=== PATIENT | male | born 1940 | race Caucasian/White ===

== ENCOUNTER 2016-02-23 10:40 | Inpatient (IN) | payer MEDICARE ==
[2016-02-23] MEDS ORDERED: METHYLPREDNISOLONE 125 MG/2 ML VIAL IV ONE ×2 (10:42→12:25)
[2016-02-23] MEDS ORDERED: Albuterol/Ipratropium Neb 3 ML NEB NEB ONE (10:42)
--- NOTE | 2016-02-23 10:53 | EDPRACDOC ---
- General Information Stated Complaint: RESP. 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 Mode Of Arrival: Ambulance Home Medications: Home Medications Albuterol/Ipratropium Neb [Duoneb] 3 ml NEB Q6H PRN 02/23/16 Amlodipine [Norvasc] 10 mg PO DAILY 02/23/16 Benazepril HCl [Lotensin] 20 mg PO DAILY 02/23/16 Fluticasone/Vilanterol [Breo Ellipta 200-25 Mcg INH] 1 each INH DAILY 02/23/16 Nebulizer [Erapid Nebulizer] 1 each MC .UNKNOWN 02/23/16 Tiotropium [place] [Spiriva] 1 puff INH DAILY 02/23/16 Allergies/Adverse Reactions: Allergies Allergy/AdvReac Type Severity Reaction Status Date / Time No Known Drug Allergies Allergy Unknown Verified 02/23/16 10:48 - History of Present Illness Onset: FEW DAYS HPI: PT SAID THAT HE HAS HAD SOB AND A COUGH FOR THE PAST FEW DAYS. SX TODAY ARE WORSE. PT WEARS HOME O2 2L NORMALLY AND ACCORDING TO EMS, PT'S O2 SAT WAS IN THE MID 80S. PT'S OXYGEN INCREASED AND HE WAS GIVEN A DUONEB EN ROUTE. Shortness of Breath: Moderate Relevant History: Reports: COPD Cough: Reports: Yellow Rhinorrhea: Reports: None Ear Symptoms: Reports: None SOB Worsens with: Reports: Exertion SOB Improves with: Reports: Nothing ED Past Medical History - Patient Medical History Respiratory History: Reports: COPD - Social Medical History Lives In: Home EDM Review of Systems - Review of Systems ROS Negative Except as Marked: Yes All systems reviewed and were negative except as marked Respiratory: Cough, Shortness of Breath, Wheezing - Physical Exam Constitutional: Distress Oriented to: Time, Person, Place Last recorded Vital Signs: Oxygen Pulse Oxygen Saturation O2 Device Oxygen Flow Rate Fraction of Inspired Oxygen ( FIO2) - HEENT Head: Normal ( normocephalic) Eye Exam: Normal (PERRL, EOMI, Sclera white) Oropharynx: Membranes Dry ENT EAC: Normal TMJ: Normal Nose: No Symptoms Reported (septum midline) Neck: Normal (FROM, trachea at midline) - Respiratory/Cardiovascular Respiratory: Accessory Muscle Use, Rhonchi, Tachypnea, Wheezes Cardiovascular: Tachycardia - GI Auscultation: Normal (NABS) Palpation: Normal (Soft,No rebound or guarding, non distended) Tenderness: Non tender Lewis's Sign: Negative - Musculoskeletal Back: Normal (Non-Tender) Extremities: Normal (Normal tone, Pulses 2+ No cyanosis or edema, FROM) - Integumentary Skin: Normal, Warm, Dry Lymphatics: Normal (no adenopathy) - Neurologic Memory Impaired: Normal Motor Function: Normal (Normal tone, Pulses 2+ No cyanosis or edema, FROM) Cranial Nerve: Normal (CN II-X11 intact sensation, strength 5/5) Cerebellar: Normal Mood Description: Normal Thought: Coherent Perception: Normal ED SOB MDM - Re-evaluation Re-evaluation 1 Re-evaluation Time: 11:48 (IMPROVED, BUT STILL SOB.) - Results Result Diagrams: 02/23/16 10:45 02/23/16 10:45 - EKG EKG #1 EKG Time: 11:02 -: Yes EKG interpreted by me Rate: bpm: 119 [place]: Normal Rhythm: ST Block: None Hypertrophy: None ST: Normal Comments: no old - Diagnostic Imaging Chest Image interpreted by: Radiologist Diagnostic Imaging Comments: Vascular congestion with underlying interstitial chronic changes. Patchy airspace disease at the right base, suspicious for pneumonia. - Departure Yes I personally saw and evaluated the patient. Disposition: Admit IP To This Hospital Condition: Fair Final Diagnosis: Acute exacerbation of chronic obstructive airways disease, RLL pneumonia, Acute respiratory failure with hypoxia Education/Counseling Given To: Patient Education/Counseling Given Regarding: Diagnosis, Treatment Decision to Admit Time: 11:49 Decision to admit date: 02/23/16 Decision to admit: from ED - Physician Consulted Hospitalist Provider Called: Jourdan Holman
[2016-02-23 10:58] LABS: ALLEN'S TEST PASS; BEb 2.4 (+/- 2); TCO2 28.5 MMOL/L (23-27)
[2016-02-23 10:59] LABS: ABG Draw Site Right Radial
[2016-02-23 11:09] LABS: AUTOMATED BASOPHIL 0.2 % (0-2); AUTOMATED EOSINOPHIL 0.1 % (0-5); AUTOMATED LYMPH 5.2 % (17-44); AUTOMATED MONOCYTE 8.7 % (3-10); AUTOMATED NEUTROPHIL 85.8 % (45-76); MPV 7.6 fL (7.4-10.4)
--- NOTE | 2016-02-23 11:15 | DIRPT ---
CLINICAL DATA: Initial encounter for shortness of breath for 3 days with worsening this morning. EXAM: PORTABLE CHEST 1 VIEW COMPARISON: CT chest 12/17/2015. FINDINGS: 1055 hours. Low volume film with lordotic positioning. Cardiopericardial silhouette is at upper limits of normal for size. There is pulmonary vascular congestion without overt pulmonary edema. Underlying probable chronic interstitial lung disease. Asymmetric elevation of right hemidiaphragm noted. Patchy airspace disease noted at the right lung base. IMPRESSION: Vascular congestion with underlying interstitial chronic changes. Patchy airspace disease at the right base, suspicious for pneumonia. Electronically Signed By: Aaron Fuentes M.D. On: 02/23/2016 11:12
[2016-02-23] MEDS ORDERED: Levofloxacin 750 mg/150 ml D5W 750 MG/150 ML RTU IV ONE (11:16)
[2016-02-23 11:22] LABS: PARTIAL THROMB. TIME 24.1 SEC (22-35); PT-INR 1.1
[2016-02-23 11:24] LABS: BLOOD UREA NITROGEN 20 MG/DL (9-20); CALCIUM 9.4 MG/DL (8.4-10.2); CALCULATED OSMOLALITY 285 MOs/Kg (270-290); CHLORIDE 104 mEq/L (98-107); GLUCOSE 197 MG/DL (70-99); SODIUM LEVEL 144 mEq/L (137-146); TOTAL PROTEIN 7.8 G/DL (6.3-8.2)
[2016-02-23] MEDS ORDERED: DOCUSATE-SENNA CONCENTRATE TAB PO PRN (12:15)
[2016-02-23] MEDS ORDERED: SIMETHICONE 80 MG TAB PO PRN (12:15)
[2016-02-23] MEDS ORDERED: ACETAMINOPHEN 650 MG SUPP PR PRN (12:15)
[2016-02-23] MEDS ORDERED: GLUCOSE (ORAL GEL) 15 GM TUBE PO PRN (12:15)
[2016-02-23] MEDS ORDERED: SODIUM CHLORIDE 0.9% 3 ML FLUSH FLUSH PRN (12:15)
[2016-02-23] MEDS ORDERED: DEXTROSE 25 GM/50 ML PFS IV PRN (12:15)
[2016-02-23] MEDS ORDERED: METOCLOPRAMIDE 10 MG/2 ML VIAL IV PRN (12:15)
[2016-02-23] MEDS ORDERED: GLUCAGON 1 MG VIAL SQ PRN (12:15)
[2016-02-23] MEDS ORDERED: ONDANSETRON HCL 4 MG/2 ML VIAL IV PRN (12:15)
[2016-02-23] MEDS ORDERED: Albuterol/Ipratropium Neb 3 ML NEB NEB PRN (12:15)
[2016-02-23] MEDS ORDERED: NS 1,000 ML IV ONE (12:15)
[2016-02-23] MEDS: NS 1,000 ML IV SCH ×3 (15:24→16:25)
[2016-02-23] MEDS: CEFTRIAXONE 1 GM in D5W 100 ML IV SCH (15:31)
[2016-02-23] MEDS: Albuterol/Ipratropium Neb 3 ML NEB NEB SCH ×2 (15:41→20:21)
[2016-02-23] MEDS ORDERED: Vaccine Screening Complete SCH (16:00)
[2016-02-23] MEDS: AZITHROMYCIN 500 MG in D5W 250 ML IV SCH (16:23)
[2016-02-23] MEDS: SODIUM CHLORIDE 0.9% 3 ML FLUSH FLUSH SCH (16:24)
[2016-02-23] MEDS: METHYLPREDNISOLONE 125 MG/2 ML VIAL IV SCH ×2 (16:26→22:57)
[2016-02-23] MEDS: REGULAR INSULIN 100 UNITS/ML - 3 ML VIAL SQ SCH ×2 (16:42→20:41)
[2016-02-23] MEDS: ENOXAPARIN 60 MG/0.6 ML PFS SQ SCH (17:30)
--- NOTE | 2016-02-23 17:59 | HISTPHYS ---
- Chief Complaint COUGH & CONGESTION, SHORT OF BREATH - History of Present Illness Mr. Jacques Babcock is a 75 year old man who presented to the ED complaining of acute onset of worsening shortness of breath, chest congestion, and coughing that began about 3-4 days ago. He reports fever and chills at home, denies nausea or vomiting. He has a history of COPD and is usually on 2L of oxygen at home, but turned it up to 4L today without relief. He was still hypoxic on arrival to the ED with an O2 sat of 89% on 4L. His chest x-ray reveals a patchy infiltrate in the right base, consistent with pneumonia. He is being admitted for for evaluation and treatment. - Medical History Cardiac History: Reports: Hypertension Respiratory History: Reports: COPD, Cough GI/ History: Reports: Gastroesophageal Reflux Musculoskeletal History: Reports: Arthritis Systemic History: Reports: No Significant History. Denies: Diabetes Neurological History: Reports: No Significant History Psychological History: Reports: No Significant History. Denies: Depression - Surgical History Reports: No Significant History, Other (remote hx fractured forearm) - Medictions/Allergies Allergies No Known Drug Allergies Allergy (Verified 02/23/16 10:48) Unknown Current Medication List: Reviewed Home Medications Albuterol/Ipratropium Neb [Duoneb] 3 ml NEB Q6H PRN 02/23/16 Amlodipine [Norvasc] 10 mg PO DAILY 02/23/16 Benazepril HCl [Lotensin] 20 mg PO DAILY 02/23/16 Fluticasone/Vilanterol [Breo Ellipta 200-25 Mcg INH] 1 each INH DAILY 02/23/16 Nebulizer [Erapid Nebulizer] 1 each MC .UNKNOWN 02/23/16 Tiotropium [place] [Spiriva] 1 puff INH DAILY 02/23/16 - Family History Reports: Hypertension. Denies: Diabetes, Cancer, Stroke, Cardiac Disorders - Social History Travel Outside of [place] in the Last 3 Months?: No Lives: with Significant Other Smoking Status: Former smoker (quit >20 yr ago) Social History: Denies: Alcohol Use - Review of Systems Constitutional: Chills, Fever, Loss of Appetite, Weakness Eyes: No Symptoms Reported Ears: No Symptoms Reported Nose: No Symptoms Reported Mouth: Dry Mouth Throat/Neck: No Symptoms Reported Respiratory: Brassy Cough, Cough, Shortness of Breath, Wheezing, Bronchitis Cardiovascular: Chest Pain Gastrointestinal: Heartburn Genitourinary: Frequency, Nocturia Neurological: Dizziness Musculoskeletal:: Osteoarthritis, Joint Pain Integumentary: No Symptoms Reported Allergic/Immunologic: No Symptoms Reported Hematologic: No Symptoms Reported Endocrine: Polyuria Psychiatric: No Symptoms Reported - Physical Exam Vital Signs: Initial Vitals Temperature 99 F 02/23/16 10:40 Pulse Rate 118 02/23/16 10:40 Respiratory Rate 30 H 02/23/16 10:40 Blood Pressure 142/67 02/23/16 10:40 Pulse Oxygen Saturation 89 L 02/23/16 10:40 Constitutional: Alert, Distress (obese white male, moderate respiratory distress ) Oriented to: Time, Person, Place - HEENT Head: Normal Eye: Normal (PERRL: EOMI) Oropharynx: Membranes Dry. negative: Exudate, Red Tympanic Membrane: Normal ENT EAC: Normal Nose: negative: Bleeding, Congestion, Discharge Respiratory: Diminished, Rales, Retractions, Rhonchi, Tachypnea, Wheezes Cardiovascular: Tachycardia (regular rhythm and rate, no murmur) - GI Auscultation: Normal Palpation: Normal (soft, obes, nondistended) Tenderness: Non tender Lewis's Sign: Negative Rectal Exam: Deferred - Musculoskeletal Back: Normal Extremities: Normal, Pedal Pulse (normal), Radial Pulse (normal). negative: Clubbing, Cyanosis, Edema Spine: non-tender, normal alignment, normal inspection - Integumentary Skin: Warm, Dry Lymphatics: Normal - Neurologic Memory Impaired: Normal Motor Function: Normal Cranial Nerve: Normal Cerebellar: Normal Mood Description: Normal, Appropriate, Calm Thought: Coherent Perception: Normal - Foot Exam Foot Prick Test: Normal Babinski Reflex Response: Absent Bilateral Achilles Tendon Reflex Response: Normal Skin/Nail Foot Exam: Dry, Fissure/Cracks Vascular Foot exam: Hair Loss. negative: Edema Foot Exam: Normal inspection, Full ROM - Focused CV Perfusion Exam Vital Signs: Last Vital Signs Temp 98.2 F 02/23/16 16:31 Pulse 95 02/23/16 16:57 Resp 35 H 02/23/16 16:31 BP 137/67 02/23/16 16:31 Pulse Ox 92 02/23/16 16:31 - Lab Results Laboratory Tests 02/23/16 02/23/16 02/23/16 10:45 10:45 10:45 WBC 14.5 H Hgb 13.1 L Hct 39.7 L Plt Count 335 Neut % (Auto) 85.8 H Lymph % (Auto) 5.2 L [place] % (Auto) 8.7 PT 11.4 H INR 1.1 APTT 24.1 Puncture Site pH pCO2 pO2 HCO3 Total CO2 Base Excess FiO2 % Sodium 144 Potassium 4.3 Chloride 104 Carbon Dioxide 27 Anion Gap 17 H BUN 20 Creatinine 1.00 Estimated GFR (MDRD) > 60 Glucose 197 H POC Capillary Glucose Calculated Osmolality 285 Lactic Acid Calcium 9.4 Total Bilirubin 0.7 AST 29 ALT 48 Troponin I < 0.01 Gfb-B-Bxblvcungwx Pept Albumin 4.0 02/23/16 02/23/16 02/23/16 10:45 10:45 10:52 WBC Hgb Hct Plt Count Neut % (Auto) Lymph % (Auto) [place] % (Auto) PT INR APTT Puncture Site Right radial pH 7.420 pCO2 42.0 pO2 51.0 L HCO3 27.2 H Total CO2 28.5 H Base Excess 2.4 H FiO2 % 1 lpm nc Sodium Potassium Chloride Carbon Dioxide Anion Gap BUN Creatinine Estimated GFR (MDRD) Glucose POC Capillary Glucose Calculated Osmolality Lactic Acid 3.1 H Calcium Total Bilirubin AST ALT Troponin I Kvb-G-Zejmleywkst Pept 243 Albumin 02/23/16 02/23/16 02/23/16 13:52 16:00 16:07 WBC Hgb Hct Plt Count Neut % (Auto) Lymph % (Auto) [place] % (Auto) PT INR APTT Puncture Site pH pCO2 pO2 HCO3 Total CO2 Base Excess FiO2 % Sodium Potassium Chloride Carbon Dioxide Anion Gap BUN Creatinine Estimated GFR (MDRD) Glucose POC Capillary Glucose 185 H Calculated Osmolality Lactic Acid Calcium Total Bilirubin AST ALT Troponin I < 0.01 < 0.01 Pmy-C-Ksldckkdpuh Pept Albumin - Diagnostic Findings CXR: IMPRESSION: Vascular congestion with underlying interstitial chronic changes. Patchy airspace disease at the right base, suspicious for pneumonia. Electronically Signed By: Aaron Fuentes M.D. On: 02/23/2016 11:12 - Assessment (1) Acute respiratory failure with hypoxia J96.01 - ACUTE RESPIRATORY FAILURE WITH HYPOXIA Acute Present on Admission: Yes Admit. Provide supplemental oxygen. Maintain O2 sat> 90% but less than 94% due to his COPD. Monitor CXR and O2 sats, ABG intermittently. (2) RLL pneumonia J18.1 - LOBAR PNEUMONIA, UNSPECIFIED ORGANISM Acute Present on Admission: Yes Qualifiers: Pneumonia type: due to unspecified organism Qualified Code(s): J18.1 - Lobar pneumonia, unspecified organism Probably community acquired: will start IV Rocephin and Zithromax, give fluids. Provide supplemental oxygen and pulmonary toilet, monitor O2 sats. (3) Acute exacerbation of chronic obstructive airways disease J44.1 - CHRONIC OBSTRUCTIVE PULMONARY DISEASE W (ACUTE) EXACERBATION Acute Present on Admission: Yes Duo-Nebs q 6hr, + q 2 Hr PRN, add IV steroids, IV antibiotics, and incentive spirometry. Maintain O2 sat> 90% but less than 94% due to his COPD. Monitor CXR and O2 sats, ABG intermittently. (4) Hyperglycemia due to type 2 diabetes mellitus E11.65 - TYPE 2 DIABETES MELLITUS WITH HYPERGLYCEMIA Acute Present on Admission: Yes Qualifiers: Diabetes mellitus continuous churn buttermaker insulin use: without assisted use Qualified Code(s): E11.65 - Type 2 diabetes mellitus with hyperglycemia Newly diagnosed, patient was not aware that he had diabetes. Will check FSBS and start SSI, moderate carb diet. Will probably need oral agent. Check Hg A1c also. (5) Hypertension I10 - ESSENTIAL (PRIMARY) HYPERTENSION Acute Present on Admission: Yes Qualifiers: Hypertension type: essential hypertension Qualified Code(s): I10 - Essential (primary) hypertension Continue benazepril and amlodipine. Case Care Discussed with: Patient, Nursing Staff Total Time: 60 min
[2016-02-23] MEDS: BENZONATATE 100 MG PERLES PO PRN (20:40)
[2016-02-23] MEDS: TEMAZEPAM 15 MG CAP PO PRN (20:40)
[2016-02-24] MEDS: NS 1,000 ML IV SCH ×4 (01:33→21:19)
[2016-02-24] MEDS: Albuterol/Ipratropium Neb 3 ML NEB NEB SCH ×4 (01:54→19:26)
[2016-02-24 04:23] LABS: ABG Draw Site Right Radial; ALLEN'S TEST PASS; BEb 2.2 (+/- 2); TCO2 29.8 MMOL/L (23-27)
[2016-02-24 04:24] LABS: ABG Draw Tech BKL
[2016-02-24] MEDS: SODIUM CHLORIDE 0.9% 3 ML FLUSH FLUSH SCH ×2 (04:43→16:01)
[2016-02-24] MEDS: METHYLPREDNISOLONE 125 MG/2 ML VIAL IV SCH ×4 (04:43→21:22)
[2016-02-24 05:18] LABS: MPV 7.8 fL (7.4-10.4)
[2016-02-24 05:26] LABS: BLOOD UREA NITROGEN 23 MG/DL (9-20); CALCIUM 8.6 MG/DL (8.4-10.2); CALCULATED OSMOLALITY 283 MOs/Kg (270-290); CHLORIDE 105 mEq/L (98-107); GLUCOSE 170 MG/DL (70-99); SODIUM LEVEL 143 mEq/L (137-146)
[2016-02-24] MEDS: REGULAR INSULIN 100 UNITS/ML - 3 ML VIAL SQ SCH ×4 (05:32→21:19)
[2016-02-24] MEDS: BENZONATATE 100 MG PERLES PO PRN ×2 (05:32→21:22)
[2016-02-24] MEDS: BENAZEPRIL 20 MG TAB PO SCH (07:21)
[2016-02-24] MEDS: AMLODIPINE 10 MG TAB PO SCH (07:21)
[2016-02-24 08:11] LABS: SEG NEUTROPHIL 58 % (45-76)
[2016-02-24] MEDS: BUDESONIDE 0.5 MG NEB NEB SCH ×2 (08:43→19:27)
[2016-02-24] MEDS ORDERED: [UNRECOGNIZED DRUG - OTHER] INH SCH (09:00)
--- NOTE | 2016-02-24 11:48 | GENMEDPROG ---
Chief Complaint: PNEUMONIA, DM-2, COPD, HTN, RESP INSUFF. Currently: Reports: Cough, Wheezing, MICHAELS, SOB, Tobacco Use/Hx. Denies: Ambulating DVT Prophylaxis: Yes - Physical Examination Vital Signs and I&O: Last Vital Signs Temp 98.2 F 02/24/16 08:18 Pulse 80 02/24/16 11:16 Resp 20 02/24/16 08:18 BP 138/88 02/24/16 08:18 Pulse Ox 94 02/24/16 08:43 Oxygen Pulse Oxygen Saturation 94 O2 Device Nasal Cannula Oxygen Flow Rate 4 Fraction of Inspired Oxygen ( FIO2) Intake & Output 02/21/16 02/22/16 02/23/16 02/24/16 23:59 23:59 23:59 23:59 Intake Total 4075 2472 Output Total 1200 900 Balance 2875 1572 Patient's weight 115.757 kg 113.58 kg General: Alert, Oriented x3, Cooperative, Moderate distress, Obese, Weakness HEENT: PERRLA, EOMI, Anicteric Sclera, Mucous membr. moist/pink Neck: Full range of motion, Normal Trachea alignment, Normal inspection, No Masses palpable, No Thyromegaly palpable Lymphatics: Normal Respiratory: Diminished, Rales, Retractions, Rhonchi, Tachypnea, Wheezes Cardiovascular: Regular rate and rhythm, Normal S1, Normal S2, Good Pedal Pulses , Chest Non Tender. negative: LE Edema GI: Normal bowel sounds, Soft, Non tender, Obese Extremities/Musculoskeletal: Normal pulses, DJD, FROM. negative: Edema Skin: Warm,Dry and Intact, No breakdown, No significant lesion Neurological: Normal speech, Normal tone, Cranial nerves 3-12 NL Psych/Mental Status: Normal Affect, Cooperative Lab/DI/Studies Reviewed: Laboratory Tests 02/24/16 02/24/16 02/24/16 04:20 05:00 05:00 WBC 10.7 Hgb 11.5 L D Hct 34.4 L RDW 15.1 H Plt Count 297 Seg Neuts % (Manual) 58 Band Neutrophils % 26 H Lymphocytes % (Manual) 13 L pH 7.370 pCO2 49.0 H pO2 77.0 L HCO3 28.3 H Total CO2 29.8 H Base Excess 2.2 H FiO2 % 4 lpm Sodium 143 Potassium 4.4 Chloride 105 Carbon Dioxide 26 Anion Gap 16 BUN 23 H Creatinine 0.80 Estimated GFR (MDRD) > 60 Glucose 170 H Lactic Acid Calcium 8.6 Magnesium 2.10 02/24/16 05:00 WBC Hgb Hct RDW Plt Count Seg Neuts % (Manual) Band Neutrophils % Lymphocytes % (Manual) pH pCO2 pO2 HCO3 Total CO2 Base Excess FiO2 % Sodium Potassium Chloride Carbon Dioxide Anion Gap BUN Creatinine Estimated GFR (MDRD) Glucose Lactic Acid 0.8 Calcium Magnesium - Assessment (1) Acute respiratory failure with hypoxia Acute J96.01 - ACUTE RESPIRATORY FAILURE WITH HYPOXIA Comment/Plan: Continue supplemental oxygen. Maintain O2 sat> 90% but less than 94% due to his COPD. Monitor CXR and O2 sats, ABG intermittently. (2) RLL pneumonia Acute J18.1 - LOBAR PNEUMONIA, UNSPECIFIED ORGANISM Qualifiers: Pneumonia type: due to unspecified organism Qualified Code(s): J18.1 - Lobar pneumonia, unspecified organism Comment/Plan: Probably community acquired: will continue IV Rocephin and Zithromax, give fluids. Provide supplemental oxygen and pulmonary toilet, monitor O2 sats. (3) Acute exacerbation of chronic obstructive airways disease Acute J44.1 - CHRONIC OBSTRUCTIVE PULMONARY DISEASE W (ACUTE) EXACERBATION Comment/Plan: Duo-Nebs q 6hr, + q 2 Hr PRN, IV steroids, IV antibiotics, and incentive spirometry. Maintain O2 sat> 90% but less than 94% due to his COPD. Monitor CXR and O2 sats, ABG intermittently. 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 Will check FSBS and start SSI, moderate carb diet. Will probably need oral agent. Hg A1c=6.5, consistent w/ DM-2. Start metformin. (5) Hypertension Acute I10 - ESSENTIAL (PRIMARY) HYPERTENSION Qualifiers: Hypertension type: essential hypertension Qualified Code(s): I10 - Essential (primary) hypertension Comment/Plan: Continue benazepril and amlodipine.
[2016-02-24] MEDS: CEFTRIAXONE 1 GM in D5W 100 ML IV SCH (13:21)
[2016-02-24] MEDS: ENOXAPARIN 60 MG/0.6 ML PFS SQ SCH (16:00)
[2016-02-24] MEDS: AZITHROMYCIN 500 MG in D5W 250 ML IV SCH (16:00)
[2016-02-24] MEDS: TEMAZEPAM 15 MG CAP PO PRN (21:22)
[2016-02-25] MEDS: Albuterol/Ipratropium Neb 3 ML NEB NEB SCH ×4 (01:13→19:28)
[2016-02-25] MEDS: METHYLPREDNISOLONE 125 MG/2 ML VIAL IV SCH ×4 (04:44→22:04)
[2016-02-25] MEDS: SODIUM CHLORIDE 0.9% 3 ML FLUSH FLUSH SCH ×2 (04:44→18:02)
[2016-02-25] MEDS: BENZONATATE 100 MG PERLES PO PRN (04:53)
[2016-02-25] MEDS: NS 1,000 ML IV SCH ×4 (05:55→20:25)
[2016-02-25] MEDS: MetFORMIN, EXT REL 500 MG TAB PO SCH (06:31)
[2016-02-25] MEDS: REGULAR INSULIN 100 UNITS/ML - 3 ML VIAL SQ SCH ×4 (06:32→22:02)
[2016-02-25] MEDS: BUDESONIDE 0.5 MG NEB NEB SCH ×2 (07:49→19:34)
--- NOTE | 2016-02-25 08:12 | DIRPT ---
CLINICAL DATA: 75-year-old male with history of pneumonia. Cough. EXAM: PORTABLE CHEST 1 VIEW COMPARISON: Chest x-ray 02/23/2016. FINDINGS: Diffuse peribronchial cuffing. Coarse interstitial markings throughout the lungs bilaterally with some patchy airspace disease throughout the right mid to lower lung, and in the medial left lung base, concerning for bronchitis with multilobar bronchopneumonia. No pleural effusions. There is some cephalization of the pulmonary vasculature. Heart size appears upper limits of normal. Upper mediastinal contours are within normal limits. Atherosclerosis in the thoracic aorta. IMPRESSION: 1. The appearance the chest is again most suggestive of bronchitis and developing multilobar bronchopneumonia, as above. 2. Atherosclerosis. Electronically Signed By: Min Burt M.D. On: 02/25/2016 08:09
[2016-02-25] MEDS: AMLODIPINE 10 MG TAB PO SCH (08:20)
[2016-02-25] MEDS: BENAZEPRIL 20 MG TAB PO SCH (08:20)
[2016-02-25] MEDS: ACETAMINOPHEN 325 MG/TAB TABLET PO PRN ×2 (08:23→22:07)
[2016-02-25] MEDS: CEFTRIAXONE 1 GM in D5W 100 ML IV SCH (13:17)
[2016-02-25] MEDS: AZITHROMYCIN 500 MG in D5W 250 ML IV SCH (15:07)
--- NOTE | 2016-02-25 15:29 | GENMEDPROG ---
Chief Complaint: ACUTE RESP FAILURE, COPD EXAC, PNEUMONIA, DM-2 Currently: Reports: Cough, Wheezing, MICHAELS, SOB, Tobacco Use/Hx. Denies: Ambulating DVT Prophylaxis: Yes - Physical Examination Vital Signs and I&O: Last Vital Signs Temp 97.9 F 02/25/16 12:29 Pulse 84 02/25/16 14:00 Resp 18 02/25/16 12:29 BP 131/62 02/25/16 12:29 Pulse Ox 94 02/25/16 12:29 Oxygen Pulse Oxygen Saturation 94 O2 Device Nasal Cannula Oxygen Flow Rate 4 Fraction of Inspired Oxygen ( FIO2) Intake & Output 02/22/16 02/23/16 02/24/16 02/25/16 23:59 23:59 23:59 23:59 Intake Total 4075 4942 2207 Output Total 1200 2400 525 Balance 1935 2704 9782 Patient's weight 115.757 kg 113.58 kg 115.847 kg General: Alert, Oriented x3, Cooperative, Moderate distress, Obese, Weakness HEENT: PERRLA, EOMI, Anicteric Sclera, Mucous membr. moist/pink Neck: Full range of motion, Normal Trachea alignment, Normal inspection, No Masses palpable, No Thyromegaly palpable Lymphatics: Normal Respiratory: Diminished, Rales, Retractions, Rhonchi, Tachypnea, Wheezes Cardiovascular: Regular rate and rhythm, Normal S1, Normal S2, Good Pedal Pulses , Chest Non Tender. negative: LE Edema GI: Normal bowel sounds, Soft, Non tender, Obese Extremities/Musculoskeletal: Normal pulses, DJD, FROM. negative: Edema Skin: Warm,Dry and Intact, No breakdown, No significant lesion Neurological: Normal speech, Normal tone, Cranial nerves 3-12 NL Psych/Mental Status: Normal Affect, Cooperative Lab/DI/Studies Reviewed: SPUTUM C&S + GROWTH SUGGESTIVE OF HAEMOPHILUS INFLUENZA - Assessment (1) Acute respiratory failure with hypoxia Acute J96.01 - ACUTE RESPIRATORY FAILURE WITH HYPOXIA Comment/Plan: Continue supplemental oxygen. Maintain O2 sat> 90% but less than 94% due to his COPD. Monitor CXR and O2 sats, ABG intermittently. (2) RLL pneumonia Acute J18.1 - LOBAR PNEUMONIA, UNSPECIFIED ORGANISM Qualifiers: Pneumonia type: due to Haemophilus influenzae Qualified Code(s): J14 - Pneumonia due to Hemophilus influenzae Comment/Plan: Probably community acquired: will continue IV Rocephin and Zithromax, give fluids. Provide supplemental oxygen and pulmonary toilet, monitor O2 sats. (3) Acute exacerbation of chronic obstructive airways disease Acute J44.1 - CHRONIC OBSTRUCTIVE PULMONARY DISEASE W (ACUTE) EXACERBATION Comment/Plan: Duo-Nebs q 6hr, + q 2 Hr PRN, IV steroids, IV antibiotics, and incentive spirometry. Maintain O2 sat> 90% but less than 94% due to his COPD. Monitor CXR and O2 sats, ABG intermittently. (4) Hyperglycemia due to type 2 diabetes mellitus Acute E11.65 - TYPE 2 DIABETES MELLITUS WITH HYPERGLYCEMIA Qualifiers: Diabetes mellitus halfway insulin use: without continuous churn buttermaker use Qualified Code(s): E11.65 - Type 2 diabetes mellitus with hyperglycemia Comment/Plan: Newly diagnosed, patient was not aware that he had diabetes. Will check FSBS and start SSI, moderate carb diet. Will probably need oral agent. Hg A1c=6.5, consistent w/ DM-2. Start metformin. (5) Hypertension Acute I10 - ESSENTIAL (PRIMARY) HYPERTENSION Qualifiers: Hypertension type: essential hypertension Qualified Code(s): I10 - Essential (primary) hypertension Comment/Plan: Continue benazepril and amlodipine.
[2016-02-25] MEDS: ENOXAPARIN 60 MG/0.6 ML PFS SQ SCH (18:02)
[2016-02-25] MEDS: TEMAZEPAM 15 MG CAP PO PRN (22:02)
[2016-02-26] MEDS: Albuterol/Ipratropium Neb 3 ML NEB NEB SCH ×4 (01:20→21:05)
[2016-02-26] MEDS ORDERED: OXYCODONE HCL 5 MG TABLET PO PRN (02:12)
[2016-02-26] MEDS: NS 1,000 ML IV SCH ×2 (04:13→12:48)
[2016-02-26] MEDS: METHYLPREDNISOLONE 125 MG/2 ML VIAL IV SCH ×4 (06:06→21:46)
[2016-02-26] MEDS: SODIUM CHLORIDE 0.9% 3 ML FLUSH FLUSH SCH ×3 (06:07→18:12)
[2016-02-26] MEDS: REGULAR INSULIN 100 UNITS/ML - 3 ML VIAL SQ SCH ×4 (06:08→21:44)
[2016-02-26] MEDS: MetFORMIN, EXT REL 500 MG TAB PO SCH (06:09)
[2016-02-26] MEDS: AMLODIPINE 10 MG TAB PO SCH (07:56)
[2016-02-26] MEDS: BENAZEPRIL 20 MG TAB PO SCH (07:56)
[2016-02-26] MEDS: BUDESONIDE 0.5 MG NEB NEB SCH ×2 (08:10→21:06)
[2016-02-26] MEDS: CEFTRIAXONE 1 GM in D5W 100 ML IV SCH (12:48)
--- NOTE | 2016-02-26 13:50 | GENMEDPROG ---
Currently: Reports: Cough, Wheezing, MICHAELS, SOB, Tobacco Use/Hx. Denies: Ambulating DVT Prophylaxis: Yes - Physical Examination Vital Signs and I&O: Last Vital Signs Temp 97.7 F 02/26/16 12:00 Pulse 83 02/26/16 12:00 Resp 20 02/26/16 12:00 BP 146/76 02/26/16 12:00 Pulse Ox 92 02/26/16 12:00 Oxygen Pulse Oxygen Saturation 92 O2 Device Nasal Cannula Oxygen Flow Rate 4 Fraction of Inspired Oxygen ( FIO2) Intake & Output 02/23/16 02/24/16 02/25/16 02/26/16 23:59 23:59 23:59 23:59 Intake Total 4075 4942 4298 1617 Output Total 1200 2400 1500 1200 Balance 2875 6095 7218 417 Patient's weight 115.757 kg 113.58 kg 115.847 kg 116.981 kg General: Alert, Oriented x3, Cooperative, Moderate distress, Obese, Weakness HEENT: PERRLA, EOMI, Anicteric Sclera, Mucous membr. moist/pink Neck: Full range of motion, Normal Trachea alignment, Normal inspection, No Masses palpable, No Thyromegaly palpable Lymphatics: Normal Respiratory: Diminished, Rales, Retractions, Rhonchi, Tachypnea, Wheezes Cardiovascular: Regular rate and rhythm, Normal S1, Normal S2, Good Pedal Pulses , Chest Non Tender. negative: LE Edema GI: Normal bowel sounds, Soft, Non tender, Obese Extremities/Musculoskeletal: Normal pulses, DJD, FROM. negative: Edema Skin: Warm,Dry and Intact, No breakdown, No significant lesion Neurological: Normal speech, Normal tone, Cranial nerves 3-12 NL Psych/Mental Status: Normal Affect, Cooperative - Assessment (1) Acute respiratory failure with hypoxia Acute J96.01 - ACUTE RESPIRATORY FAILURE WITH HYPOXIA Comment/Plan: Continue supplemental oxygen. Maintain O2 sat> 90% but less than 94% due to his COPD. Monitor CXR and O2 sats, ABG intermittently. (2) RLL pneumonia Acute J18.1 - LOBAR PNEUMONIA, UNSPECIFIED ORGANISM Qualifiers: Pneumonia type: due to Haemophilus influenzae Qualified Code(s): J14 - Pneumonia due to Hemophilus influenzae Comment/Plan: Probably community acquired: will continue IV Rocephin and Zithromax, give fluids. Provide supplemental oxygen and pulmonary toilet, monitor O2 sats. (3) Acute exacerbation of chronic obstructive airways disease Acute J44.1 - CHRONIC OBSTRUCTIVE PULMONARY DISEASE W (ACUTE) EXACERBATION Comment/Plan: Duo-Nebs q 6hr, + q 2 Hr PRN, IV steroids, IV antibiotics, and incentive spirometry. Maintain O2 sat> 90% but less than 94% due to his COPD. Monitor CXR and O2 sats, ABG intermittently. (4) Hyperglycemia due to type 2 diabetes mellitus Acute E11.65 - TYPE 2 DIABETES MELLITUS WITH HYPERGLYCEMIA Qualifiers: Diabetes mellitus assisted insulin use: without medical terminologist use Qualified Code(s): E11.65 - Type 2 diabetes mellitus with hyperglycemia Comment/Plan: Newly diagnosed, patient was not aware that he had diabetes. Will check FSBS and start SSI, moderate carb diet. Will probably need oral agent. Hg A1c=6.5, consistent w/ DM-2. Start metformin. (5) Hypertension Acute I10 - ESSENTIAL (PRIMARY) HYPERTENSION Qualifiers: Hypertension type: essential hypertension Qualified Code(s): I10 - Essential (primary) hypertension Comment/Plan: Continue benazepril and amlodipine.
[2016-02-26] MEDS ORDERED: SODIUM CHLORIDE 0.9% 3 ML FLUSH FLUSH PRN (15:26)
[2016-02-26] MEDS ORDERED: AZITHROMYCIN 500 MG in D5W 250 ML IV ONE (16:00)
[2016-02-26] MEDS ORDERED: SODIUM CHLORIDE 0.9% 3 ML FLUSH FLUSH SCH (16:00)
[2016-02-26] MEDS: ENOXAPARIN 60 MG/0.6 ML PFS SQ SCH (18:11)
[2016-02-26] MEDS: TEMAZEPAM 15 MG CAP PO PRN (21:44)
[2016-02-27] MEDS: Albuterol/Ipratropium Neb 3 ML NEB NEB SCH ×4 (02:01→20:05)
[2016-02-27] MEDS: SODIUM CHLORIDE 0.9% 3 ML FLUSH FLUSH SCH ×3 (05:24→17:03)
[2016-02-27] MEDS: METHYLPREDNISOLONE 125 MG/2 ML VIAL IV SCH ×3 (05:24→17:03)
[2016-02-27] MEDS: MetFORMIN, EXT REL 500 MG TAB PO SCH (05:25)
[2016-02-27] MEDS: REGULAR INSULIN 100 UNITS/ML - 3 ML VIAL SQ SCH ×4 (05:25→20:43)
[2016-02-27] MEDS: BUDESONIDE 0.5 MG NEB NEB SCH ×2 (08:12→20:06)
[2016-02-27] MEDS: BENAZEPRIL 20 MG TAB PO SCH (08:45)
[2016-02-27] MEDS: AMLODIPINE 10 MG TAB PO SCH (08:45)
[2016-02-27] MEDS: CEFTRIAXONE 1 GM in D5W 100 ML IV SCH (13:49)
[2016-02-27] MEDS: ENOXAPARIN 60 MG/0.6 ML PFS SQ SCH (17:03)
--- NOTE | 2016-02-27 20:30 | GENMEDPROG ---
Chief Complaint: Haemophilus influenza pneumonia, Currently: Reports: Cough, Wheezing, MICHAELS, SOB, Tobacco Use/Hx. Denies: Ambulating DVT Prophylaxis: Yes - Physical Examination Vital Signs and I&O: Last Vital Signs Temp 97.8 F 02/27/16 20:26 Pulse 83 02/27/16 20:26 Resp 18 02/27/16 20:26 BP 149/77 02/27/16 20:26 Pulse Ox 92 02/27/16 20:26 Oxygen Pulse Oxygen Saturation 92 O2 Device Nasal Cannula Oxygen Flow Rate 4 Fraction of Inspired Oxygen ( FIO2) Intake & Output 02/24/16 02/25/16 02/26/16 02/27/16 23:59 23:59 23:59 23:59 Intake Total 4942 4298 3191 1032 Output Total 2400 1500 2250 825 Balance 2542 2798 941 207 Patient's weight 113.58 kg 115.847 kg 116.981 kg 117.48 kg General: Alert, Oriented x3, Cooperative, Moderate distress, Obese, Weakness HEENT: PERRLA, EOMI, Anicteric Sclera, Mucous membr. moist/pink Neck: Full range of motion, Normal Trachea alignment, Normal inspection, No Masses palpable, No Thyromegaly palpable Lymphatics: Normal Respiratory: Diminished, Rales, Retractions, Rhonchi, Tachypnea, Wheezes Cardiovascular: Regular rate and rhythm, Normal S1, Normal S2, Good Pedal Pulses , Chest Non Tender. negative: LE Edema GI: Normal bowel sounds, Soft, Non tender, Obese Extremities/Musculoskeletal: Normal pulses, DJD, FROM. negative: Edema Skin: Warm,Dry and Intact, No breakdown, No significant lesion Neurological: Normal speech, Normal tone, Cranial nerves 3-12 NL Psych/Mental Status: Normal Affect, Cooperative - Assessment (1) Acute respiratory failure with hypoxia Acute J96.01 - ACUTE RESPIRATORY FAILURE WITH HYPOXIA Comment/Plan: Continue supplemental oxygen. Maintain O2 sat> 90% but less than 94% due to his COPD. Monitor CXR and O2 sats, ABG intermittently. (2) RLL pneumonia Acute J18.1 - LOBAR PNEUMONIA, UNSPECIFIED ORGANISM Qualifiers: Pneumonia type: due to Haemophilus influenzae Qualified Code(s): J14 - Pneumonia due to Hemophilus influenzae Comment/Plan: Probably community acquired: will continue IV Rocephin and Zithromax, give fluids. Provide supplemental oxygen and pulmonary toilet, monitor O2 sats. (3) Acute exacerbation of chronic obstructive airways disease Acute J44.1 - CHRONIC OBSTRUCTIVE PULMONARY DISEASE W (ACUTE) EXACERBATION Comment/Plan: Duo-Nebs q 6hr, + q 2 Hr PRN, IV steroids, IV antibiotics, and incentive spirometry. Maintain O2 sat> 90% but less than 94% due to his COPD. Monitor CXR and O2 sats, ABG intermittently. (4) Hyperglycemia due to type 2 diabetes mellitus Acute E11.65 - TYPE 2 DIABETES MELLITUS WITH HYPERGLYCEMIA Qualifiers: Diabetes mellitus watermelon inspector insulin use: without assisted use Qualified Code(s): E11.65 - Type 2 diabetes mellitus with hyperglycemia Comment/Plan: Newly diagnosed, patient was not aware that he had diabetes. Will check FSBS and start SSI, moderate carb diet. Will probably need oral agent. Hg A1c=6.5, consistent w/ DM-2. Start metformin. (5) Hypertension Acute I10 - ESSENTIAL (PRIMARY) HYPERTENSION Qualifiers: Hypertension type: essential hypertension Qualified Code(s): I10 - Essential (primary) hypertension Comment/Plan: Continue benazepril and amlodipine.
[2016-02-27] MEDS: TEMAZEPAM 15 MG CAP PO PRN (20:43)
[2016-02-28] MEDS: METHYLPREDNISOLONE 125 MG/2 ML VIAL IV SCH ×3 (00:08→12:06)
[2016-02-28] MEDS: Albuterol/Ipratropium Neb 3 ML NEB NEB SCH ×3 (02:03→13:57)
[2016-02-28] MEDS: SODIUM CHLORIDE 0.9% 3 ML FLUSH FLUSH SCH (05:17)
[2016-02-28] MEDS: MetFORMIN, EXT REL 500 MG TAB PO SCH (05:18)
[2016-02-28] MEDS: REGULAR INSULIN 100 UNITS/ML - 3 ML VIAL SQ SCH ×2 (05:18→12:06)
[2016-02-28] MEDS: BUDESONIDE 0.5 MG NEB NEB SCH (08:34)
[2016-02-28] MEDS: AMLODIPINE 10 MG TAB PO SCH (08:54)
[2016-02-28] MEDS: BENAZEPRIL 20 MG TAB PO SCH (08:54)
[2016-02-28 10:46] VITALS: BP 159/72; PULSE 82; TEMP 97.7
--- NOTE | 2016-02-28 11:57 | PCM.DCS92 ---
- Final/Secondary Discharge Diagnosis (1) Acute respiratory failure with hypoxia Acute J96.01 - ACUTE RESPIRATORY FAILURE WITH HYPOXIA Present on Admission: Yes Comment: Continue supplemental oxygen. Maintain O2 sat> 90% but less than 94% due to his COPD. Monitor CXR and O2 sats, ABG intermittently. (2) RLL pneumonia Acute J18.1 - LOBAR PNEUMONIA, UNSPECIFIED ORGANISM Present on Admission: Yes due to Haemophilus influenzae J14 - Pneumonia due to Hemophilus influenzae Comment: Sputum + for Haemophilus influenza, has received 5 days of IV Rocephin and Zithromax, will change to PO Ceftin at discharge. Provided supplemental oxygen and pulmonary toilet, . (3) Acute exacerbation of chronic obstructive airways disease Acute J44.1 - CHRONIC OBSTRUCTIVE PULMONARY DISEASE W (ACUTE) EXACERBATION Present on Admission: Yes Comment: Duo-Nebs q 6hr, + q 2 Hr PRN, IV steroids, IV antibiotics, and incentive spirometry. Weaning oxygen and steroids. (4) Hyperglycemia due to type 2 diabetes mellitus Acute E11.65 - TYPE 2 DIABETES MELLITUS WITH HYPERGLYCEMIA Present on Admission: Yes without cashier assistant use E11.65 - Type 2 diabetes mellitus with hyperglycemia Comment: Newly diagnosed, patient was not aware that he had diabetes. Will check FSBS and start SSI, moderate carb diet. Will probably need oral agent. Hg A1c=6.5, consistent w/ DM-2. Started metformin. (5) Hypertension Acute I10 - ESSENTIAL (PRIMARY) HYPERTENSION Present on Admission: Yes essential hypertension I10 - Essential (primary) hypertension Comment: Continue benazepril and amlodipine. Discharge Disposition: Discharge w/ Home Health Discharge Condition: Improved Cognitive Discharge Status: Unimpaired Fuctional Discharge Status: Independent, Dyspnea with ambulation Physician Follow up/Referrals: Shin Nelson MD [Primary Care Provider] - One Week New Prescriptions: Cefuroxime Axetil [Ceftin] 500 mg PO BID #10 tablet MetFORMIN, Extended Release [Glucophage Xr] 500 mg PO DAILY@0700 #30 tablet Prednisone [Sterapred Ds] 10 mg PO DIR #48 pack Discharge Home Medication List Albuterol/Ipratropium Neb [Duoneb] 3 ml NEB Q6H PRN 02/23/16 [History Confirmed 02/23/16 Last Taken 02/23/16] Amlodipine [Norvasc] 10 mg PO DAILY 02/23/16 [History Confirmed 02/23/16 Last Taken 02/23/16] Benazepril HCl [Lotensin] 20 mg PO DAILY 02/23/16 [History Confirmed 02/23/16 Last Taken 02/23/16] Fluticasone/Vilanterol [Breo Ellipta 200-25 Mcg INH] 1 each INH DAILY 02/23/16 [ History Confirmed 02/23/16 Last Taken 02/23/16] Nebulizer [Erapid Nebulizer] 1 each MC .UNKNOWN 02/23/16 [History Confirmed Last Taken 02/23/16] Tiotropium [place] [Spiriva] 1 puff INH DAILY 02/23/16 [History Confirmed Last Taken 02/23/16] Acetaminophen Tablet [TYLENOL Tablet] 650 mg PO Q6H PRN #100 tablet 02/28/16 [ Rx Last Taken Unknown] Cefuroxime Axetil [Ceftin] 500 mg PO BID #10 tablet 02/28/16 [Rx Last Taken Unknown] MetFORMIN, Extended Release [Glucophage Xr] 500 mg PO DAILY@0700 #30 tablet 07/09 [Rx Last Taken Unknown] Prednisone [Sterapred Ds] 10 mg PO DIR #48 pack 02/28/16 [Rx Last Taken Unknown] O2 Device: Nasal Cannula Oxygen Flow Rate: 2 Oxygen to be used after Discharge: Continuous Diet at Discharge: Heart Healthy, Diabetic, 1800 Calorie Activity: As Tolerated Call Office For: Worsening Symptoms, Fever over 101 F, Pain Uncontrolled By Meds - DC Summary Notes Home Health Need / Assisted Services:: Due to the presence of Pulmonary Changes and/or risk of deterioration a skilled Assessment and observation of pulmonary status is required for this patient. This assessment could include but not limited to teaching, training of disease process and symptom management (diet, infection control, safety) and recognizing changes/decline in status. If appropriate to include education on oxygen use - safety, storage, reordering and need for a fire plan. Pulse Oximetry PRN for S/S respiratory distress. Hospital Course Note:: Discharge summary on patient named JACQUES BABCOCK admitted to [facility] on 02/23/16 by Garima Maldonado MD. Date of discharge is [02/28/16] .Mr. Jacques Babcock is a 75 year old man who presented to the ED complaining of acute onset of worsening shortness of breath, chest congestion, and coughing that began about 3-4 days ago. He reports fever and chills at home, denies nausea or vomiting. He has a history of COPD and is usually on 2L of oxygen at home, but turned it up to 4L today without relief. He was still hypoxic on arrival to the ED with an O2 sat of 89% on 4L. His chest x-ray reveals a patchy infiltrate in the right base, consistent with pneumonia. He is being admitted for for evaluation and treatment. He had blood culture and sputum culture obtained and was started on IV antibiotics and pulmonary toilet. His sputum was positive for Haemophilus influenza. He has been slow to improve, but has gradually been able to reduce the amount of steroids needed to prevent bronchial inflammation and edema. His wheezing has been controlled with nebulized albuterol and ipratropium treatments. He has received five days of IV antibiotics during hospitalization. He is now stable enough to recover at home, and will be changed to oral medications and discharged home. Total Time: 40 min Code: 07977 (>30min.) - Physical Exam Vital Signs: Last Vital Signs Temp 97.7 F 02/28/16 10:44 Pulse 82 02/28/16 10:44 Resp 18 02/28/16 10:44 BP 159/72 02/28/16 10:44 Pulse Ox 93 02/28/16 10:44 Oxygen Pulse Oxygen Saturation 93 O2 Device Nasal Cannula Oxygen Flow Rate 4 Fraction of Inspired Oxygen ( FIO2) Constitutional: No apparent distress, Alert Oriented to: Time, Person, Place - HEENT Head: Normal Eye: Normal (PERRL: EOMI) Oropharynx: Normal. negative: Exudate, Red Tympanic Membrane: Normal ENT EAC: Normal Nose: No Symptoms Reported. negative: Bleeding, Congestion, Discharge - Respiratory/Cardiovascular Respiratory: Normal - CTA, Diminished Cardiovascular: Normal - GI Auscultation: Normal Palpation: Normal (soft, obes, nondistended) Tenderness: Non tender Lewis's Sign: Negative Rectal Exam: Deferred - Musculoskeletal Back: Normal Extremities: Normal, Pedal Pulse (normal), Radial Pulse (normal). negative: Clubbing, Cyanosis, Edema - Integumentary Skin: Warm, Dry Lymphatics: Normal - Neurologic Memory Impaired: Normal Motor Function: Normal Cranial Nerve: Normal Cerebellar: Normal Mood Description: Normal, Appropriate, Calm Thought: Coherent Perception: Normal
[2016-02-28 15:53] VITALS: BMI 38.7
== END 2016-02-28 15:00 | disposition home health service (06) | DRG 193 ==
LOC: ED 10:40 → EDINP 12:15 → PCU 14:19
PROVIDERS: ADMIT Family Medicine; ATTEND Family Medicine
PROC: 039B3ZZ Drainage of Right Radial Artery, Percutaneous Approach (ICD-10-PCS; principal; 2016-02-23)
DX: J14 Pneumonia due to Hemophilus influenzae (principal); J96.01 Acute respiratory failure with hypoxia; J44.1 Chronic obstructive pulmonary disease with (acute) exacerbation; J44.0 Chronic obstructive pulmonary disease with (acute) lower respiratory infection; E11.65 Type 2 diabetes mellitus with hyperglycemia; I10 Essential (primary) hypertension; K21.9 Gastro-esophageal reflux disease without esophagitis; Z79.899 Other long term (current) drug therapy; Z87.891 Personal history of nicotine dependence; M19.90 Unspecified osteoarthritis, unspecified site
CPT/HCPCS: 36415; 36600; 71010; 80048; 80053; 82272; 82803; 82962; 83036; 83605; 83735; 83880; 84484; 85007; 85025; 85027; 85610; 85730; 87040; 87070; 87077; 87181; 87205; 87804; 93005; 94640; 94664; 96372; 96375; 98960; 99285; G0237; J0456; J0696; J1650; J1956; J2930; J3490; J7060; J7070; J7620

== ENCOUNTER 2016-03-12 12:35 | Inpatient (IN) | payer MEDICARE ==
[2016-03-12 13:12] LABS: ABG Draw Site Left Radial; ALLEN'S TEST PASS; BEb 0.3 (+/- 2); TCO2 26.7 MMOL/L (23-27)
[2016-03-12 13:14] LABS: MPV 7.9 fL (7.4-10.4)
[2016-03-12 13:23] LABS: BLOOD UREA NITROGEN 14 MG/DL (9-20); CALCIUM 8.6 MG/DL (8.4-10.2); CALCULATED OSMOLALITY 272 MOs/Kg (270-290); CHLORIDE 103 mEq/L (98-107); GLUCOSE 128 MG/DL (70-99); SODIUM LEVEL 140 mEq/L (137-146); TOTAL PROTEIN 6.5 G/DL (6.3-8.2)
[2016-03-12 13:24] LABS: PARTIAL THROMB. TIME 21.7 SEC (22-35)
--- NOTE | 2016-03-12 13:34 | EDPRACDOC ---
<RobbAngeli Juanito - Last Filed: 03/12/16 15:30> - General Information Information Source: Patient, Acquisition Manager - History of Present Illness HPI: pt was admitted for pneumonia 1.5 weeks ago. D/c home with ceftin and prednisone , got a little better but then started to get worse. C/o increasing sob, productive cough (white) and new onset lower ext edema. Hx of COPD on home O2 at 2L. Med hx = DM, HTN, COPD. Also c/o not being able to pee except in dribbles ever since he got back from [place] [employer]. Shortness of Breath: Moderate Relevant History: Reports: COPD Cough: Reports: Productive, White Rhinorrhea: Denies: Clear, Bloody, Brown, Green, Purulent, None, O Ear Symptoms: Reports: None SOB Worsens with: Reports: Exertion, Movement, Coughing SOB Improves with: Reports: Rest Recently treated infections:: Reports: Pneumonia Associated Signs and symptoms: Reports: Cough <Roddy Doll - Last Filed: 03/12/16 19:33> - General Information Chief Complaint: Dyspnea/Resp distress Stated Complaint: BREATHING DIFF Time Seen by Provider: 03/12/16 12:52 Home Medications: Home Medications Albuterol/Ipratropium Neb [Duoneb] 3 ml NEB Q6H PRN 02/23/16 Amlodipine [Norvasc] 10 mg PO DAILY 02/23/16 Benazepril HCl [Lotensin] 20 mg PO DAILY 02/23/16 Fluticasone/Vilanterol [Breo Ellipta 200-25 Mcg INH] 1 puff INH DAILY 02/23/16 Nebulizer [Erapid Nebulizer] 1 item NEB DAILY 02/23/16 Tiotropium [place] [Spiriva] 1 puff INH DAILY 02/23/16 Acetaminophen Tablet [TYLENOL Tablet] 650 mg PO Q6H PRN #100 tablet 02/28/16 MetFORMIN, Extended Release [Glucophage Xr] 500 mg PO DAILY@0700 #30 tablet 07/09 Prednisone [Sterapred Ds] 10 mg PO DIR #48 pack 02/28/16 Allergies/Adverse Reactions: Allergies Allergy/AdvReac Type Severity Reaction Status Date / Time No Known Drug Allergies Allergy Unknown Verified 02/23/16 10:48 - Treatment Prior to ED Arrival Reported Medications/Treatment LIVESTOCK BUYER Meds/Treatments Given O2 via Cannula Medications LIVESTOCK BUYER (Medication/ Duoneb per EMS Dose/Time) EMS Treatment ALS IV Yes Comment 20g to RAC <Angeli Zamudio - Last Filed: 03/12/16 15:30> - Treatment Prior to ED Arrival Reported Medications/Treatment LIVESTOCK BUYER Meds/Treatments Given O2 via Cannula Medications LIVESTOCK BUYER (Medication/ Duoneb per EMS Dose/Time) EMS Treatment ALS IV Yes Comment 20g to RAC <Roddy Doll - Last Filed: 03/12/16 19:33> ED Past Medical History - History Reviewed Yes Nurses notes reviewed and agree except as marked - Patient Medical History Cardiac History: Reports: Hypertension Respiratory History: Reports: COPD, Cough GI/ History: Reports: Gastroesophageal Reflux Musculoskeletal History: Reports: Arthritis Psychological History: Denies: Depression, Substance Use Disorder Systemic History: Denies: Diabetes Surgical History: Reports: Other (remote hx fractured forearm) - Family Medical History Reports: Hypertension. Denies: Diabetes, Cancer, Stroke, Cardiac Disorders - Social Medical History Smoking Status: Former smoker Social History: Denies: Substance Use Disorder <Roddy Doll - Last Filed: 03/12/16 19:33> EDM Review of Systems - Review of Systems ROS Negative Except as Marked: Yes All systems reviewed and were negative except as marked Respiratory: Cough, Shortness of Breath, Sputum Endocrine: Diabetes <Roddy Doll - Last Filed: 03/12/16 19:33> - Physical Exam Last recorded Vital Signs: Last Vital Signs Temp 98.6 F 03/12/16 12:49 Pulse 120 H 03/12/16 15:16 Resp 26 H 03/12/16 15:16 BP 127/74 03/12/16 15:16 Pulse Ox 89 L 03/12/16 15:16 Oxygen Pulse Oxygen Saturation 89 O2 Device Nasal Cannula Oxygen Flow Rate 3 Fraction of Inspired Oxygen ( FIO2) <Angeli Zamudio - Last Filed: 03/12/16 15:30> - Physical Exam Constitutional: Alert Oriented to: Time, Person, Place Last recorded Vital Signs: Last Vital Signs Temp 98.6 F 03/12/16 12:49 Pulse 110 03/12/16 12:59 Resp 30 H 03/12/16 12:59 BP 104/55 L 03/12/16 12:59 Pulse Ox 90 L 03/12/16 12:59 Oxygen Pulse Oxygen Saturation 90 O2 Device Nasal Cannula Oxygen Flow Rate 3 Fraction of Inspired Oxygen ( FIO2) - HEENT Head: Normal Eye Exam: negative: Conjunctival Injection, Scleral Icterus Oropharynx: negative: Drooling TMJ: Normal Nose: No Symptoms Reported Neck: Normal - Respiratory/Cardiovascular Respiratory: Wheezes (bilat) Cardiovascular: Tachycardia - GI Tenderness: Non tender - Musculoskeletal Back: Normal Extremities: Pedal Edema (bilat), Pedal Pulse, Radial Pulse - Integumentary Skin: Normal - Neurologic Mood Description: Normal Thought: Coherent Perception: Normal <Roddy Doll - Last Filed: 03/12/16 19:33> ED SOB MDM - Results Result Diagrams: 03/12/16 12:55 03/12/16 12:55 Results: WBC 12.3 xk/uL (3.8-10.8) H 03/12/16 12:55 RBC 4.08 xM/uL (4.70-6.10) L 03/12/16 12:55 Hgb 12.2 g/dL (14.0-18.0) L 03/12/16 12:55 Hct 36.8 % (42-52) L 03/12/16 12:55 MCV 90 fL (80-94) 03/12/16 12:55 MCH 30.0 pg (27-32) 03/12/16 12:55 MCHC 33.2 g/dl (33-36) 03/12/16 12:55 RDW 15.1 % (11.5-14.5) H 03/12/16 12:55 Plt Count 170 xk/uL (130-400) 03/12/16 12:55 MPV 7.9 fL (7.4-10.4) 03/12/16 12:55 Neut % (Auto) Cancelled 03/12/16 12:55 Lymph % (Auto) Cancelled 03/12/16 12:55 [place] % (Auto) Cancelled 03/12/16 12:55 Eos % (Auto) Cancelled 03/12/16 12:55 Baso % (Auto) Cancelled 03/12/16 12:55 Absolute Neuts (auto) Cancelled 03/12/16 12:55 Absolute Lymphs (auto) Cancelled 03/12/16 12:55 Seg Neuts % (Manual) 92 % (45-76) H 03/12/16 12:55 Band Neutrophils % 2 % (0-5) 03/12/16 12:55 Lymphocytes % (Manual) 6 % (17-44) L 03/12/16 12:55 Absolute Neutrophils 11.56 xk/uL (1.7-8.2) H 03/12/16 12:55 Absolute Lymphocytes 0.74 xk/uL (0.65-4.75) 03/12/16 12:55 Platelet Estimate Norm (NORMAL) 03/12/16 12:55 RBC Morphology Norm 03/12/16 12:55 PT 10.7 SEC (9.2-11.2) 03/12/16 12:55 INR 1.0 03/12/16 12:55 APTT 21.7 SEC (22-35) L 03/12/16 12:55 Puncture Site Left radial 03/12/16 13:00 pH 7.390 pH UNITS (7.35-7.45) 03/12/16 13:00 pCO2 42.0 mmHg (35-45) 03/12/16 13:00 pO2 66.0 mmHg (80-100) L 03/12/16 13:00 HCO3 25.4 MMOL/L (22-26) 03/12/16 13:00 Total CO2 26.7 MMOL/L (23-27) 03/12/16 13:00 Base Excess 0.3 (+/- 2) 03/12/16 13:00 FiO2 % 3 lpm nc 03/12/16 13:00 Specimen Drawn By Roude 03/12/16 13:00 Sodium 140 mEq/L (137-146) 03/12/16 12:55 Potassium 3.9 mEq/L (3.5-5.1) 03/12/16 12:55 Chloride 103 mEq/L (98-107) 03/12/16 12:55 Carbon Dioxide 27 mMOL/L (22-33) 03/12/16 12:55 Anion Gap 14 mEq/L (8-16) 03/12/16 12:55 BUN 14 MG/DL (9-20) 03/12/16 12:55 Creatinine 0.70 MG/DL (0.66-1.25) 03/12/16 12:55 Estimated GFR (MDRD) > 60 mL/min (>=60) 03/12/16 12:55 Glucose 128 MG/DL (70-99) H 03/12/16 12:55 Calculated Osmolality 272 MOs/Kg (270-290) 03/12/16 12:55 Lactic Acid 1.9 mEq/L (0.7-2.1) 03/12/16 13:09 Calcium 8.6 MG/DL (8.4-10.2) 03/12/16 12:55 Corrected Calcium 9.0 MG/DL (8.4-10.2) 03/12/16 12:55 Total Bilirubin 0.5 MG/DL (0.2-1.3) 03/12/16 12:55 AST 28 IU/L (17-59) 03/12/16 12:55 ALT 77 IU/L (21-72) H 03/12/16 12:55 Alkaline Phosphatase 64 IU/L (50-160) 03/12/16 12:55 Troponin I < 0.01 ng/mL (<.04) 03/12/16 12:55 Odf-C-Eeeriqmuldx Pept 74 pg/mL (0-900) 03/12/16 12:55 Total Protein 6.5 G/DL (6.3-8.2) 03/12/16 12:55 Albumin 3.6 G/DL (3.5-5.0) 03/12/16 12:55 Lab Results 03/12/16 03/12/16 03/12/16 13:09 13:00 12:55 WBC RBC Hgb Hct MCV MCH MCHC RDW Plt Count MPV Neut % (Auto) Lymph % (Auto) [place] % (Auto) Eos % (Auto) Baso % (Auto) Absolute Neuts (auto) Absolute Lymphs (auto) Seg Neuts % (Manual) Band Neutrophils % Lymphocytes % (Manual) Absolute Neutrophils Absolute Lymphocytes Platelet Estimate RBC Morphology PT 10.7 INR 1.0 APTT 21.7 L Puncture Site Left radial pH 7.390 pCO2 42.0 pO2 66.0 L HCO3 25.4 Total CO2 26.7 Base Excess 0.3 FiO2 % 3 lpm nc Specimen Drawn By Roude Sodium Potassium Chloride Carbon Dioxide Anion Gap BUN Creatinine Estimated GFR (MDRD) Glucose Calculated Osmolality Lactic Acid 1.9 Calcium Corrected Calcium Total Bilirubin AST ALT Alkaline Phosphatase Troponin I Fjk-H-Owbupdqxehi Pept Total Protein Albumin 03/12/16 03/12/16 12:55 12:55 WBC 12.3 H RBC 4.08 L Hgb 12.2 L Hct 36.8 L MCV 90 MCH 30.0 MCHC 33.2 RDW 15.1 H Plt Count 170 MPV 7.9 Neut % (Auto) Cancelled Lymph % (Auto) Cancelled [place] % (Auto) Cancelled Eos % (Auto) Cancelled Baso % (Auto) Cancelled Absolute Neuts (auto) Cancelled Absolute Lymphs (auto) Cancelled Seg Neuts % (Manual) 92 H Band Neutrophils % 2 Lymphocytes % (Manual) 6 L Absolute Neutrophils 11.56 H Absolute Lymphocytes 0.74 Platelet Estimate Norm RBC Morphology Norm PT INR APTT Puncture Site pH pCO2 pO2 HCO3 Total CO2 Base Excess FiO2 % Specimen Drawn By Sodium 140 Potassium 3.9 Chloride 103 Carbon Dioxide 27 Anion Gap 14 BUN 14 Creatinine 0.70 Estimated GFR (MDRD) > 60 Glucose 128 H Calculated Osmolality 272 Lactic Acid Calcium 8.6 Corrected Calcium 9.0 Total Bilirubin 0.5 AST 28 ALT 77 H Alkaline Phosphatase 64 Troponin I < 0.01 Kle-P-Odmfldylvfw Pept 74 Total Protein 6.5 Albumin 3.6 - Diagnostic Imaging Chest Image interpreted by: Radiologist Diagnostic Imaging Comments: Stable bilateral interstitial lung opacities are noted most consistent with scarring. Stable peribronchial cuffing in is noted consistent with bronchitis. No significant changes noted compared to prior exam. - Additional Information Additional Information: PT STILL HYPOXIC AND SOB ON HIS NORMAL HOME O2, SO WE PLACED HIM ON A VENTIMASK. <Angeli Zamudio - Last Filed: 03/12/16 15:30> - Results Result Diagrams: 03/12/16 12:55 03/12/16 12:55 Results: WBC 12.3 xk/uL (3.8-10.8) H 03/12/16 12:55 RBC 4.08 xM/uL (4.70-6.10) L 03/12/16 12:55 Hgb 12.2 g/dL (14.0-18.0) L 03/12/16 12:55 Hct 36.8 % (42-52) L 03/12/16 12:55 MCV 90 fL (80-94) 03/12/16 12:55 MCH 30.0 pg (27-32) 03/12/16 12:55 MCHC 33.2 g/dl (33-36) 03/12/16 12:55 RDW 15.1 % (11.5-14.5) H 03/12/16 12:55 Plt Count 170 xk/uL (130-400) 03/12/16 12:55 MPV 7.9 fL (7.4-10.4) 03/12/16 12:55 Puncture Site Left radial 03/12/16 13:00 pH 7.390 pH UNITS (7.35-7.45) 03/12/16 13:00 pCO2 42.0 mmHg (35-45) 03/12/16 13:00 pO2 66.0 mmHg (80-100) L 03/12/16 13:00 HCO3 25.4 MMOL/L (22-26) 03/12/16 13:00 Total CO2 26.7 MMOL/L (23-27) 03/12/16 13:00 Base Excess 0.3 (+/- 2) 03/12/16 13:00 FiO2 % 3 lpm nc 03/12/16 13:00 Specimen Drawn By Roude 03/12/16 13:00 Sodium 140 mEq/L (137-146) 03/12/16 12:55 Potassium 3.9 mEq/L (3.5-5.1) 03/12/16 12:55 Chloride 103 mEq/L (98-107) 03/12/16 12:55 Carbon Dioxide 27 mMOL/L (22-33) 03/12/16 12:55 Anion Gap 14 mEq/L (8-16) 03/12/16 12:55 BUN 14 MG/DL (9-20) 03/12/16 12:55 Creatinine 0.70 MG/DL (0.66-1.25) 03/12/16 12:55 Estimated GFR (MDRD) > 60 mL/min (>=60) 03/12/16 12:55 Glucose 128 MG/DL (70-99) H 03/12/16 12:55 Calculated Osmolality 272 MOs/Kg (270-290) 03/12/16 12:55 Calcium 8.6 MG/DL (8.4-10.2) 03/12/16 12:55 Corrected Calcium 9.0 MG/DL (8.4-10.2) 03/12/16 12:55 Total Bilirubin 0.5 MG/DL (0.2-1.3) 03/12/16 12:55 AST 28 IU/L (17-59) 03/12/16 12:55 ALT 77 IU/L (21-72) H 03/12/16 12:55 Alkaline Phosphatase 64 IU/L (50-160) 03/12/16 12:55 Total Protein 6.5 G/DL (6.3-8.2) 03/12/16 12:55 Albumin 3.6 G/DL (3.5-5.0) 03/12/16 12:55 Lab Results 03/12/16 03/12/16 03/12/16 13:00 12:55 12:55 WBC 12.3 H RBC 4.08 L Hgb 12.2 L Hct 36.8 L MCV 90 MCH 30.0 MCHC 33.2 RDW 15.1 H Plt Count 170 MPV 7.9 Puncture Site Left radial pH 7.390 pCO2 42.0 pO2 66.0 L HCO3 25.4 Total CO2 26.7 Base Excess 0.3 FiO2 % 3 lpm nc Specimen Drawn By Roude Sodium 140 Potassium 3.9 Chloride 103 Carbon Dioxide 27 Anion Gap 14 BUN 14 Creatinine 0.70 Estimated GFR (MDRD) > 60 Glucose 128 H Calculated Osmolality 272 Calcium 8.6 Corrected Calcium 9.0 Total Bilirubin 0.5 AST 28 ALT 77 H Alkaline Phosphatase 64 Total Protein 6.5 Albumin 3.6 - EKG EKG #1 EKG Time: 12:55 -: Yes EKG interpreted by me Rate: bpm: 111 Rhythm: ST ST: Normal Comparison: 02/23/16 (no significant chnage) <Roddy Doll - Last Filed: 03/12/16 19:33> - Departure Yes I personally saw and evaluated the patient. Disposition: Admit IP To This Hospital Education/Counseling Given To: Patient Education/Counseling Given Regarding: Diagnosis, Treatment Decision to Admit Time: 15:31 Decision to admit date: 03/12/16 Decision to admit: from ED - Physician Consulted Hospitalist Provider Called: Erika Pederson <Angeli Zamudio - Last Filed: 03/12/16 15:30> <Roddy Doll - Last Filed: 03/12/16 19:33> - Departure Condition: Fair Final Diagnosis: COPD exacerbation, Acute bronchitis
[2016-03-12 13:40] LABS: SEG NEUTROPHIL 92 % (45-76)
[2016-03-12] MEDS ORDERED: Albuterol/Ipratropium Neb 3 ML NEB NEB ONE ×2 (14:08→15:29)
[2016-03-12] MEDS ORDERED: METHYLPREDNISOLONE 125 MG/2 ML VIAL IV ONE (14:08)
[2016-03-12] MEDS ORDERED: METHYLPREDNISOLONE 125 MG/2 ML VIAL ONE (14:12)
--- NOTE | 2016-03-12 15:21 | DIRPT ---
CLINICAL DATA: Shortness of breath. EXAM: CHEST 2 VIEW COMPARISON: February 25, 2016. FINDINGS: The heart size and mediastinal contours are within normal limits. No pneumothorax or pleural effusion is noted. Stable bibasilar interstitial densities are noted most consistent with scarring. Stable interstitial densities also noted in right upper lobe most consistent with scarring. Central bronchial thickening is also noted which is unchanged. No new opacities are noted. The visualized skeletal structures are unremarkable. IMPRESSION: Stable bilateral interstitial lung opacities are noted most consistent with scarring. Stable peribronchial cuffing in is noted consistent with bronchitis. No significant changes noted compared to prior exam. Electronically Signed By: Josh Holman Jr, M.D. On: 03/12/2016 15:18
[2016-03-12] MEDS ORDERED: ALBUTEROL 0.083% 3 ML NEB NEB ONE (15:27)
[2016-03-12] MEDS ORDERED: PIPERACILLIN AND TAZOBACTAM 3.375 GM in D5W 100 ML IV ONE (15:31)
[2016-03-12] MEDS ORDERED: ACETAMINOPHEN 325 MG/TAB TABLET PO PRN (15:45)
[2016-03-12] MEDS ORDERED: ONDANSETRON HCL 4 MG/2 ML VIAL IV PRN (15:46)
[2016-03-12] MEDS ORDERED: GLUCOSE (ORAL GEL) 15 GM TUBE PO PRN (15:47)
[2016-03-12] MEDS ORDERED: Albuterol/Ipratropium Neb 3 ML NEB NEB PRN (15:47)
[2016-03-12] MEDS ORDERED: GLUCAGON 1 MG VIAL SQ PRN (15:47)
[2016-03-12] MEDS ORDERED: DEXTROSE 25 GM/50 ML PFS IV PRN (15:47)
[2016-03-12] MEDS ORDERED: ENOXAPARIN 40 MG/0.4 ML PFS SQ SCH (16:00)
--- NOTE | 2016-03-12 16:04 | HISTPHYS ---
- Chief Complaint Shortness of breath, leg swelling, difficulty urinating - History of Present Illness This is a pleasant 75-year-old male who was just discharged from this hospital on February 27 with COPD exacerbation and bronchopneumonia, was being readmitted to the hospital today due to lower extremity edema, significant hypoxia and shortness of breath, as well as difficulty urinating. Patient tells me that when he went home his respiratory status was decent, in fact he has been quite well from a respiratory perspective and was doing well even yesterday. He was back on his baseline 2 liters/minute of nasal cannula chronic oxygen, and taking all his medications as prescribed including his nebulized COPD medications. He did notice however that he had some slight edema when he was discharged from the hospital on February 27, and this edema continued to worsen over the last several days. He denies any pain in his legs. His diet any fevers, chills, nausea or vomiting. He has a chronic cough which is perhaps slightly increased, he does not have any sputum production. No chest pain. Also no 7th last release not able urinate. He feels that he needs to urinate, that is bladder is full, but he is not able to urinate more than a few drops at a time. - Medical History Cardiac History: Reports: Hypertension Respiratory History: Reports: COPD, Cough GI/ History: Reports: Gastroesophageal Reflux Musculoskeletal History: Reports: Arthritis Systemic History: Denies: Diabetes Psychological History: Denies: Depression, Substance Use Disorder - Surgical History Reports: Other (remote hx fractured forearm) - Medictions/Allergies Allergies No Known Drug Allergies Allergy (Verified 02/23/16 10:48) Unknown Home Medications Albuterol/Ipratropium Neb [Duoneb] 3 ml NEB Q6H PRN 02/23/16 Amlodipine [Norvasc] 10 mg PO DAILY 02/23/16 Benazepril HCl [Lotensin] 20 mg PO DAILY 02/23/16 Fluticasone/Vilanterol [Breo Ellipta 200-25 Mcg INH] 1 puff INH DAILY 02/23/16 Nebulizer [Erapid Nebulizer] 1 item NEB DAILY 02/23/16 Tiotropium [place] [Spiriva] 1 puff INH DAILY 02/23/16 Acetaminophen Tablet [TYLENOL Tablet] 650 mg PO Q6H PRN #100 tablet 02/28/16 MetFORMIN, Extended Release [Glucophage Xr] 500 mg PO DAILY@0700 #30 tablet 07/09 Prednisone [Sterapred Ds] 10 mg PO DIR #48 pack 02/28/16 - Family History Reports: Hypertension. Denies: Diabetes, Cancer, Stroke, Cardiac Disorders - Social History Smoking Status: Former smoker Social History: Denies: Substance Use Disorder - Review of Systems Yes All systems reviewed and were negative except as marked (And as mentioned in the history of present illness above.) - Physical Exam Vital Signs: Initial Vitals Temperature 98.6 F 03/12/16 12:49 Pulse Rate 114 03/12/16 12:49 Respiratory Rate 32 H 03/12/16 12:49 Blood Pressure 122/57 L 03/12/16 12:49 Pulse Oxygen Saturation 90 L 03/12/16 12:49 Constitutional: Distress Oriented to: Time, Person, Place Exam: Breathing on nonrebreather mask, able to speak several words at a time. - HEENT Head: Normal (normocephalic,atraumatic, trachea midline) Eye: Normal (EOMI, Sclera white) Oropharynx: Normal (moist) Nose: No Symptoms Reported (without discharge or bleeding) Respiratory: Diminished, Rales, Rhonchi, Tachypnea, Wheezes Cardiovascular: Tachycardia - GI Palpation: Normal (soft, non distended and nontender) - Musculoskeletal Extremities: Normal (3+ pitting edema in bilateral lower extremities up to knees ), Edema - Integumentary Skin: Normal (no rashes or lesions) - Neurologic Cranial Nerve: Normal (CN II-XII intact) Mood Description: Normal (Fully oriented and appropiate affect) - Focused CV Perfusion Exam Vital Signs: Last Vital Signs Temp 98.6 F 03/12/16 12:49 Pulse 111 03/12/16 15:47 Resp 24 03/12/16 15:47 BP 127/67 03/12/16 15:47 Pulse Ox 92 03/12/16 15:47 - Lab Results Laboratory Tests 03/12/16 03/12/16 03/12/16 12:55 12:55 12:55 WBC 12.3 H Hgb 12.2 L Hct 36.8 L INR 1.0 pH pCO2 pO2 Potassium 3.9 BUN 14 Creatinine 0.70 Total Bilirubin 0.5 AST 28 ALT 77 H 03/12/16 13:00 WBC Hgb Hct INR pH 7.390 pCO2 42.0 pO2 66.0 L Potassium BUN Creatinine Total Bilirubin AST ALT - Diagnostic Findings CXR: Stable bilateral interstitial lung opacities are noted most consistent with scarring. Stable peribronchial cuffing in is noted consistent with bronchitis. No significant changes noted compared to prior exam. - Assessment (1) Acute exacerbation of chronic obstructive airways disease J44.1 - CHRONIC OBSTRUCTIVE PULMONARY DISEASE W (ACUTE) EXACERBATION Acute Duo-Nebs q 6hr, + q 2 Hr PRN, IV steroids, IV azithromycin and rocephin, and incentive spirometry. Weaning oxygen and steroids as able. RT consulted. CXR without obvious new infection, has chronic scarring. 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 (3) Acute bronchitis J20.9 - ACUTE BRONCHITIS, UNSPECIFIED Acute With increased SOB and cough. Treat empirically as noted above. (4) Acute respiratory failure with hypoxia J96.01 - ACUTE RESPIRATORY FAILURE WITH HYPOXIA Acute Continue supplemental oxygen. Maintain O2 sat> 90% but less than 94% due to his COPD. Monitor CXR and O2 sats, ABG intermittently. (5) Hypertension I10 - ESSENTIAL (PRIMARY) HYPERTENSION Acute Qualifiers: Hypertension type: H Continue home antihypertensives. (6) Difficulty urinating R39.198 - OTHER DIFFICULTIES WITH MICTURITION Acute He has been having trouble urinating the last several days since being home. Sounds like he has urinary retention, will check an and intermittently catheterize as needed. Will also start the patient on Flomax. Case Care Discussed with: Patient, Family, Nursing Staff Total Time: 59
[2016-03-12 16:21] LABS: WBC/URINE 40-50 (0-2)
[2016-03-12 16:26] LABS: URINE OCCULT BLOOD NEG (NEG/TRACE)
[2016-03-12 16:27] LABS: LEUKOCYTES/URINE 3+ (NEGATIVE); NITRITE/URINE NEG (NEGATIVE)
[2016-03-12] MEDS: REGULAR INSULIN 100 UNITS/ML - 3 ML VIAL SQ SCH ×2 (17:24→21:49)
[2016-03-12] MEDS: FINASTERIDE 5 MG TAB PO SCH (17:39)
[2016-03-12] MEDS: CEFTRIAXONE 1 GM in D5W 100 ML IV SCH (17:39)
[2016-03-12] MEDS: Albuterol/Ipratropium Neb 3 ML NEB NEB SCH (18:18)
[2016-03-12] MEDS: BUDESONIDE 0.5 MG NEB NEB SCH (18:19)
[2016-03-12] MEDS: ENOXAPARIN 60 MG/0.6 ML PFS SQ SCH (20:46)
[2016-03-12] MEDS: AZITHROMYCIN 500 MG in D5W 250 ML IV SCH (20:47)
[2016-03-12] MEDS: METHYLPREDNISOLONE 125 MG/2 ML VIAL IV SCH (20:47)
[2016-03-13] MEDS: METHYLPREDNISOLONE 125 MG/2 ML VIAL IV SCH ×4 (02:28→20:16)
[2016-03-13] MEDS: Albuterol/Ipratropium Neb 3 ML NEB NEB SCH ×4 (02:32→20:50)
[2016-03-13 05:18] LABS: MPV 8.1 fL (7.4-10.4)
[2016-03-13 05:35] LABS: BLOOD UREA NITROGEN 16 MG/DL (9-20); GLUCOSE 171 MG/DL (70-99); TOTAL PROTEIN 5.7 G/DL (6.3-8.2)
[2016-03-13 05:41] LABS: CALCIUM 8.2 MG/DL (8.4-10.2)
[2016-03-13 05:45] LABS: CALCULATED OSMOLALITY 269 MOs/Kg (270-290); SODIUM LEVEL 137 mEq/L (137-146)
[2016-03-13 05:47] LABS: CALC CORRECTED 9.3 MG/DL (8.4-10.2); CHLORIDE 101 mEq/L (98-107)
[2016-03-13] MEDS: MetFORMIN, EXT REL 500 MG TAB PO SCH (06:16)
[2016-03-13] MEDS: REGULAR INSULIN 100 UNITS/ML - 3 ML VIAL SQ SCH ×4 (06:16→20:36)
[2016-03-13] MEDS: FINASTERIDE 5 MG TAB PO SCH (07:47)
[2016-03-13] MEDS: BENAZEPRIL 20 MG TAB PO SCH (07:47)
[2016-03-13] MEDS: AMLODIPINE 10 MG TAB PO SCH (07:47)
[2016-03-13] MEDS: BUDESONIDE 0.5 MG NEB NEB SCH ×2 (08:03→20:50)
--- NOTE | 2016-03-13 08:30 | GENMEDPROG ---
Chief Complaint: COPD exacerbation, urinary retention Subjective Note: Feeling much better, had Ervin catheter placed. Breathing comfortably on 5 L nasal cannula oxygen. Note that he is on 2 L nasal cannula oxygen at home. Notes Reviewed: Yes Events from last night noted and discussed with Clinical Staff Current Medication List: Reviewed Currently: Reports: Cough, Wheezing, MICHAELS, SOB, Sputum DVT Prophylaxis: Yes - Physical Examination Vital Signs and I&O: Last Vital Signs Temp 98 F 03/13/16 08:00 Pulse 81 03/13/16 08:00 Resp 20 03/13/16 08:00 BP 119/63 03/13/16 08:00 Pulse Ox 96 03/13/16 08:00 Oxygen Pulse Oxygen Saturation 96 O2 Device Nasal Cannula Oxygen Flow Rate 5 Fraction of Inspired Oxygen ( 40 FIO2) Intake & Output 03/11/16 03/12/16 03/13/16 03/14/16 06:59 06:59 06:59 06:59 Intake Total 657 Output Total 1450 Balance -793 Patient's weight 105.823 kg General: Alert, Oriented x3, Cooperative, Mild distress Neck: Normal Trachea alignment, Normal inspection Respiratory: Diminished, Rales, Rhonchi, Wheezes (bilat) Cardiovascular: Regular rate, No Gallops,Rubs/Murmurs GI: Normal bowel sounds, Soft, Non tender (non distended) Extremities/Musculoskeletal: Other (Normal Tone). negative: Edema, Cyanosis Skin: No rashes, No significant lesion Lab/DI/Studies Reviewed: Laboratory Tests 03/13/16 03/13/16 04:55 04:55 WBC 6.4 Hgb 11.6 L Potassium 4.2 Creatinine 0.70 Total Protein 5.7 L - Assessment (1) Acute exacerbation of chronic obstructive airways disease Acute J44.1 - CHRONIC OBSTRUCTIVE PULMONARY DISEASE W (ACUTE) EXACERBATION Comment/Plan: Duo-Nebs q 6hr, + q 2 Hr PRN, IV steroids, IV azithromycin and rocephin, and incentive spirometry. Weaning oxygen and steroids as able. RT consulted. CXR without obvious new infection, has chronic scarring. Doing better this morning, start to wean oxygen as able. Due to his continued rhonchi and wheezing, will continue steroids at the current dose. (2) DM2 (diabetes mellitus, type 2) Acute E11.9 - TYPE 2 DIABETES MELLITUS WITHOUT COMPLICATIONS Qualifiers: Diabetes mellitus complication status: D Diabetes mellitus complication detail: D Diabetic retinopathy severity: D Proliferative retinopathy type: P Diabetes mellitus macular edema: D Diabetes mellitus usp insulin use : D Laterality: L Chronic kidney disease stage: C Comment/Plan: Cont home metformin, diabetic diet, SSI qAC and HS. (3) Acute bronchitis Acute J20.9 - ACUTE BRONCHITIS, UNSPECIFIED Comment/Plan: With increased SOB and cough. Treat empirically as noted above. (4) Acute respiratory failure with hypoxia Acute J96.01 - ACUTE RESPIRATORY FAILURE WITH HYPOXIA Comment/Plan: Continue supplemental oxygen. Maintain O2 sat> 90% but less than 94% due to his COPD. Monitor CXR and O2 sats, ABG intermittently. (5) Hypertension Acute I10 - ESSENTIAL (PRIMARY) HYPERTENSION Qualifiers: Hypertension type: H Comment/Plan: Continue home antihypertensives. (6) Difficulty urinating Acute R39.198 - OTHER DIFFICULTIES WITH MICTURITION Comment/Plan: He has been having trouble urinating the last several days since being home. Found to be in urinary retention, Ervin catheter placed. Flomax started. Will plan on removing Ervin catheter to couple days and see if he can urinate spontaneously.
[2016-03-13] MEDS ORDERED: Non-Formulary Medication ITEM (Fluticasone/Vilanterol [Breo Ellipta 200-25 Mcg Inh] 1 PU INH SCH (09:00)
[2016-03-13] MEDS ORDERED: Non-Formulary Medication ITEM (Tiotropium Bromide [Spiriva] 1 PUFF) INH SCH (09:00)
[2016-03-13] MEDS ORDERED: Vaccine Screening Complete SCH (11:00)
[2016-03-13] MEDS: ENOXAPARIN 60 MG/0.6 ML PFS SQ SCH (16:25)
[2016-03-13] MEDS: CEFTRIAXONE 1 GM in D5W 100 ML IV SCH (16:27)
[2016-03-13] MEDS: AZITHROMYCIN 500 MG in D5W 250 ML IV SCH (20:16)
[2016-03-14] MEDS: METHYLPREDNISOLONE 125 MG/2 ML VIAL IV SCH ×3 (01:29→16:42)
[2016-03-14] MEDS: Albuterol/Ipratropium Neb 3 ML NEB NEB SCH ×4 (01:45→19:24)
[2016-03-14] MEDS: REGULAR INSULIN 100 UNITS/ML - 3 ML VIAL SQ SCH ×4 (06:09→20:51)
[2016-03-14] MEDS: MetFORMIN, EXT REL 500 MG TAB PO SCH (06:09)
[2016-03-14 07:12] LABS: MPV 8.8 fL (7.4-10.4)
[2016-03-14 07:25] LABS: BLOOD UREA NITROGEN 21 MG/DL (9-20); CALC CORRECTED 9.5 MG/DL (8.4-10.2); CALCIUM 8.5 MG/DL (8.4-10.2); CALCULATED OSMOLALITY 274 MOs/Kg (270-290); CHLORIDE 100 mEq/L (98-107); GLUCOSE 185 MG/DL (70-99); SODIUM LEVEL 138 mEq/L (137-146); TOTAL PROTEIN 5.6 G/DL (6.3-8.2)
[2016-03-14] MEDS: BUDESONIDE 0.5 MG NEB NEB SCH ×2 (08:46→19:28)
[2016-03-14] MEDS: BENAZEPRIL 20 MG TAB PO SCH (09:01)
[2016-03-14] MEDS: FINASTERIDE 5 MG TAB PO SCH (09:01)
[2016-03-14] MEDS: AMLODIPINE 10 MG TAB PO SCH (09:01)
--- NOTE | 2016-03-14 12:31 | GENMEDPROG ---
Chief Complaint: COPD exacerbation Subjective Note: Do a little bit better, but still getting very winded when he ambulates. Coughing, but not productive of any sputum. Denies any chest pain or fevers. Notes Reviewed: Yes Events from last night noted and discussed with Clinical Staff Current Medication List: Reviewed Currently: Reports: Cough, Wheezing, MICHAELS, SOB, Sputum DVT Prophylaxis: Yes - Physical Examination Vital Signs and I&O: Last Vital Signs Temp 98.2 F 03/14/16 06:07 Pulse 84 03/14/16 08:00 Resp 20 03/14/16 08:00 BP 131/56 L 03/14/16 06:07 Pulse Ox 95 03/14/16 08:00 Oxygen Pulse Oxygen Saturation 95 O2 Device Nasal Cannula Oxygen Flow Rate 5 Fraction of Inspired Oxygen ( 40 FIO2) Intake & Output 03/12/16 03/13/16 03/14/16 03/15/16 06:59 06:59 06:59 06:59 Intake Total 657 1688 240 Output Total 1450 1425 250 Balance -793 263 -10 Patient's weight 105.823 kg 106.322 kg General: Alert, Oriented x3, Cooperative, Mild distress Neck: Normal Trachea alignment, Normal inspection Respiratory: Diminished, Rales, Rhonchi, Wheezes (bilat) Cardiovascular: Regular rate, No Gallops,Rubs/Murmurs GI: Normal bowel sounds, Soft, Non tender (non distended) Extremities/Musculoskeletal: Other (Normal Tone). negative: Edema, Cyanosis Skin: No rashes, No significant lesion Overall pulmonary exam is slightly improved, but still a lot of wheezing and rhonchi. Not as tight as the day before. Lab/DI/Studies Reviewed: Laboratory Tests 03/14/16 03/14/16 03/14/16 06:16 06:16 11:23 WBC 9.3 Hgb 11.5 L Hct 33.8 L Potassium 4.3 BUN 21 H Creatinine 0.70 POC Capillary Glucose 207 H - Assessment (1) Acute exacerbation of chronic obstructive airways disease Acute J44.1 - CHRONIC OBSTRUCTIVE PULMONARY DISEASE W (ACUTE) EXACERBATION Comment/Plan: Duo-Nebs q 6hr, + q 2 Hr PRN, IV steroids, IV azithromycin and rocephin, and incentive spirometry. Weaning oxygen and steroids as able. RT consulted. CXR without obvious new infection, has chronic scarring. Doing better this morning, start to wean oxygen as able. Due to slight improvement today, will wean down steroids slightly today. (2) DM2 (diabetes mellitus, type 2) Acute E11.9 - TYPE 2 DIABETES MELLITUS WITHOUT COMPLICATIONS Qualifiers: Diabetes mellitus complication status: D Diabetes mellitus complication detail: D Diabetic retinopathy severity: D Proliferative retinopathy type: P Diabetes mellitus macular edema: D Diabetes mellitus intermediate insulin use : D Laterality: L Chronic kidney disease stage: C Comment/Plan: Cont home metformin, diabetic diet, SSI qAC and HS. (3) Acute bronchitis Acute J20.9 - ACUTE BRONCHITIS, UNSPECIFIED Comment/Plan: With increased SOB and cough. Treat empirically as noted above. (4) Acute respiratory failure with hypoxia Acute J96.01 - ACUTE RESPIRATORY FAILURE WITH HYPOXIA Comment/Plan: Continue supplemental oxygen. Maintain O2 sat> 90% but less than 94% due to his COPD. Monitor CXR and O2 sats, ABG intermittently. (5) Hypertension Acute I10 - ESSENTIAL (PRIMARY) HYPERTENSION Qualifiers: Hypertension type: H Comment/Plan: Continue home antihypertensives. (6) Difficulty urinating Acute R39.198 - OTHER DIFFICULTIES WITH MICTURITION Comment/Plan: He has been having trouble urinating the last several days since being home. Found to be in urinary retention, Ervin catheter placed. Flomax started. Will plan on removing Ervin catheter to couple days and see if he can urinate spontaneously. - Plan Continue present care, improving slowly.
[2016-03-14] MEDS: ENOXAPARIN 60 MG/0.6 ML PFS SQ SCH (16:43)
[2016-03-14] MEDS: CEFTRIAXONE 1 GM in D5W 100 ML IV SCH (16:43)
[2016-03-14] MEDS: ACETYLCYSTEINE 20% SOLN 4 ML NEB SCH (19:28)
[2016-03-14] MEDS: AZITHROMYCIN 500 MG in D5W 250 ML IV SCH (19:44)
[2016-03-15] MEDS: METHYLPREDNISOLONE 125 MG/2 ML VIAL IV SCH ×3 (00:40→17:04)
[2016-03-15] MEDS: Albuterol/Ipratropium Neb 3 ML NEB NEB SCH ×4 (01:59→20:36)
[2016-03-15] MEDS: MetFORMIN, EXT REL 500 MG TAB PO SCH (06:06)
[2016-03-15] MEDS: REGULAR INSULIN 100 UNITS/ML - 3 ML VIAL SQ SCH ×4 (06:06→21:21)
[2016-03-15] MEDS: ACETYLCYSTEINE 20% SOLN 4 ML NEB SCH ×2 (07:48→20:37)
[2016-03-15] MEDS: BUDESONIDE 0.5 MG NEB NEB SCH ×2 (07:54→20:37)
[2016-03-15] MEDS: AMLODIPINE 10 MG TAB PO SCH (08:18)
[2016-03-15] MEDS: FINASTERIDE 5 MG TAB PO SCH (08:18)
[2016-03-15] MEDS: BENAZEPRIL 20 MG TAB PO SCH (08:18)
[2016-03-15 08:39] LABS: BLOOD UREA NITROGEN 24 MG/DL (9-20); CALC CORRECTED 9.6 MG/DL (8.4-10.2); CALCIUM 8.4 MG/DL (8.4-10.2); CALCULATED OSMOLALITY 279 MOs/Kg (270-290); CHLORIDE 102 mEq/L (98-107); GLUCOSE 212 MG/DL (70-99); SODIUM LEVEL 140 mEq/L (137-146); TOTAL PROTEIN 5.5 G/DL (6.3-8.2)
--- NOTE | 2016-03-15 11:04 | GENMEDPROG ---
Chief Complaint: COPD exacerbation Subjective Note: Resting comfortably in bed this morning. He overall feels like he is doing better, but unfortunately still on 5 L nasal cannula oxygen. He admits that when he has been getting up to the bathroom, he gets extremely short of breath by the time he gets back to bed. Notes Reviewed: Yes Events from last night noted and discussed with Clinical Staff Current Medication List: Reviewed Currently: Reports: Cough, Wheezing, MICHAELS, SOB, Sputum DVT Prophylaxis: Yes - Physical Examination Vital Signs and I&O: Last Vital Signs Temp 97.9 F 03/15/16 05:20 Pulse 70 03/15/16 08:21 Resp 20 03/15/16 05:20 BP 130/70 03/15/16 08:21 Pulse Ox 93 03/15/16 08:00 Oxygen Pulse Oxygen Saturation 93 O2 Device Nasal Cannula Oxygen Flow Rate 5 Fraction of Inspired Oxygen ( 40 FIO2) Intake & Output 03/13/16 03/14/16 03/15/16 03/16/16 06:59 06:59 06:59 06:59 Intake Total 657 1688 908 200 Output Total 1450 1425 1275 Balance -793 263 -367 200 Patient's weight 105.823 kg 106.322 kg 106.169 kg General: Alert, Oriented x3, Cooperative, Mild distress Neck: Normal Trachea alignment, Normal inspection Respiratory: Diminished, Rales, Rhonchi, Wheezes (bilat) Cardiovascular: Regular rate, No Gallops,Rubs/Murmurs GI: Normal bowel sounds, Soft, Non tender (non distended) Extremities/Musculoskeletal: Other (Normal Tone). negative: Edema, Cyanosis Skin: No rashes, No significant lesion Lab/DI/Studies Reviewed: Laboratory Tests 03/14/16 03/14/16 03/15/16 06:16 06:16 06:50 WBC 9.3 7.5 Hgb 11.5 L 11.3 L BUN Creatinine 0.70 03/15/16 06:50 WBC Hgb BUN 24 H Creatinine 0.70 - Assessment (1) Acute exacerbation of chronic obstructive airways disease Acute J44.1 - CHRONIC OBSTRUCTIVE PULMONARY DISEASE W (ACUTE) EXACERBATION Comment/Plan: Duo-Nebs q 6hr, + q 2 Hr PRN, IV steroids, IV azithromycin and rocephin, and incentive spirometry. Weaning oxygen and steroids as able. RT consulted. CXR without obvious new infection, has chronic scarring. Doing better this morning, start to wean oxygen as able. Due to slight improvement today, will wean down steroids slightly today. (2) DM2 (diabetes mellitus, type 2) Acute E11.9 - TYPE 2 DIABETES MELLITUS WITHOUT COMPLICATIONS Qualifiers: Diabetes mellitus complication status: D Diabetes mellitus complication detail: D Diabetic retinopathy severity: D Proliferative retinopathy type: P Diabetes mellitus macular edema: D Diabetes mellitus skilled nursing insulin use : D Laterality: L Chronic kidney disease stage: C Comment/Plan: Cont home metformin, diabetic diet, SSI qAC and HS. (3) Acute bronchitis Acute J20.9 - ACUTE BRONCHITIS, UNSPECIFIED Comment/Plan: With increased SOB and cough. Treat empirically as noted above. (4) Acute respiratory failure with hypoxia Acute J96.01 - ACUTE RESPIRATORY FAILURE WITH HYPOXIA Comment/Plan: Continue supplemental oxygen. Maintain O2 sat> 90% but less than 94% due to his COPD. Monitor CXR and O2 sats, ABG intermittently. (5) Hypertension Acute I10 - ESSENTIAL (PRIMARY) HYPERTENSION Qualifiers: Hypertension type: H Comment/Plan: Continue home antihypertensives. (6) Difficulty urinating Acute R39.198 - OTHER DIFFICULTIES WITH MICTURITION Comment/Plan: He has been having trouble urinating the last several days since being home. Found to be in urinary retention, Ervin catheter placed. Flomax started. Will plan on removing Ervin catheter to couple days and see if he can urinate spontaneously. - Plan Overall this patient is improving today. Will continue present care as he is still getting quite winded with ambulation. Try and wean oxygen as able today. Continue Flomax, would recommend discontinuation of Ervin catheter tomorrow for a trial of void.
[2016-03-15] MEDS ORDERED: Medication Special Instructions SCH (17:00)
[2016-03-15] MEDS: ENOXAPARIN 60 MG/0.6 ML PFS SQ SCH (17:04)
[2016-03-15] MEDS: CEFTRIAXONE 1 GM in D5W 100 ML IV SCH (17:05)
[2016-03-15] MEDS: AZITHROMYCIN 250 MG TAB PO SCH (21:10)
[2016-03-15] MEDS ORDERED: NS 500 ML IV ONE (21:18)
[2016-03-16] MEDS: METHYLPREDNISOLONE 125 MG/2 ML VIAL IV SCH ×3 (00:43→16:41)
[2016-03-16] MEDS: Albuterol/Ipratropium Neb 3 ML NEB NEB SCH ×4 (01:49→20:19)
[2016-03-16 04:51] VITALS: BMI 34.6
[2016-03-16] MEDS: MetFORMIN, EXT REL 500 MG TAB PO SCH (06:01)
[2016-03-16] MEDS: REGULAR INSULIN 100 UNITS/ML - 3 ML VIAL SQ SCH ×4 (06:01→21:32)
[2016-03-16 07:22] LABS: MPV 8.2 fL (7.4-10.4)
[2016-03-16 07:38] LABS: BLOOD UREA NITROGEN 22 MG/DL (9-20); CALC CORRECTED 9.4 MG/DL (8.4-10.2); CALCIUM 8.2 MG/DL (8.4-10.2); CALCULATED OSMOLALITY 278 MOs/Kg (270-290); CHLORIDE 102 mEq/L (98-107); GLUCOSE 213 MG/DL (70-99); SODIUM LEVEL 140 mEq/L (137-146); TOTAL PROTEIN 5.4 G/DL (6.3-8.2)
[2016-03-16] MEDS ORDERED: 1/2NS 1,000 ML IV ONE ×2 (07:43)
[2016-03-16] MEDS: BUDESONIDE 0.5 MG NEB NEB SCH ×2 (08:17→20:21)
[2016-03-16] MEDS: BENAZEPRIL 20 MG TAB PO SCH (08:26)
[2016-03-16] MEDS: FINASTERIDE 5 MG TAB PO SCH (08:26)
[2016-03-16] MEDS: AMLODIPINE 10 MG TAB PO SCH (08:26)
[2016-03-16] MEDS: ACETYLCYSTEINE 20% SOLN 4 ML NEB SCH ×2 (09:26→20:21)
--- NOTE | 2016-03-16 16:13 | GENMEDPROG ---
Chief Complaint: sob same Notes Reviewed: Yes Events from last night noted and discussed with Clinical Staff Current Medication List: Reviewed Currently: Reports: Cough, Wheezing, MICHAELS, SOB, Sputum DVT Prophylaxis: Yes - Physical Examination Vital Signs and I&O: Last Vital Signs Temp 98.1 F 03/16/16 14:00 Pulse 78 03/16/16 14:00 Resp 18 03/16/16 14:00 BP 131/63 03/16/16 14:00 Pulse Ox 95 03/16/16 14:11 Oxygen Pulse Oxygen Saturation 95 O2 Device Nasal Cannula Oxygen Flow Rate 5 Fraction of Inspired Oxygen ( 40 FIO2) Intake & Output 03/13/16 03/14/16 03/15/16 03/16/16 23:59 23:59 23:59 23:59 Intake Total 1057 1796 350 405 Output Total 825 4689 086 1735 Balance 232 568 -389 -840 Patient's weight 105.823 kg 106.322 kg 106.169 kg 106.311 kg General: Alert, Oriented x3, Cooperative, Mild distress HEENT: Normal (Normocephalic, atraumatic;EOMI.Sclera white, Nares patent, without discharge or bleeding. No oropharyngeal lesions or erythema. Mucous membranes are dry.) Neck: Normal Trachea alignment, Normal inspection Lymphatics: Normal (No lymph node swelling or pain.) Respiratory: Diminished, Rales, Rhonchi, Wheezes (bilat) Cardiovascular: Regular rate and rhythm, Normal S1, No Gallops,Rubs/Murmurs, Normal S2 GI: Normal bowel sounds, Soft, Non tender (non distended) Extremities/Musculoskeletal: Other (Normal Tone). negative: Edema, Clubbing, Cyanosis Skin: No rashes, No breakdown, No significant lesion Neurological: Strength at 5/5 X4 ext (Motor 5/5 throughout.), Normal tone, Cranial nerves 3-12 NL ( 2-12 grossly intact.) Psych/Mental Status: Appropriate, Normal Affect Lab/DI/Studies Reviewed: 03/16/16 07:05 03/16/16 07:05 Laboratory Results - last 24 hr 03/15/16 03/15/16 03/16/16 16:26 21:20 05:26 WBC RBC Hgb Hct MCV MCH MCHC RDW Plt Count MPV Sodium Potassium Chloride Carbon Dioxide Anion Gap BUN Creatinine Estimated GFR (MDRD) Glucose POC Capillary Glucose 159 H 250 H 221 H Calculated Osmolality Calcium Corrected Calcium Total Bilirubin AST ALT Alkaline Phosphatase Total Protein Albumin 03/16/16 03/16/16 03/16/16 07:05 07:05 11:17 WBC 5.8 RBC 3.76 L Hgb 11.2 L Hct 33.2 L MCV 88 MCH 29.9 MCHC 33.8 RDW 14.6 H Plt Count 132 MPV 8.2 Sodium 140 Potassium 4.2 Chloride 102 Carbon Dioxide 34 H Anion Gap 8 BUN 22 H Creatinine 0.60 L Estimated GFR (MDRD) > 60 Glucose 213 H POC Capillary Glucose 199 H Calculated Osmolality 278 Calcium 8.2 L Corrected Calcium 9.4 Total Bilirubin 0.3 AST 25 ALT 57 Alkaline Phosphatase 53 Total Protein 5.4 L Albumin 2.8 L 03/16/16 16:07 WBC RBC Hgb Hct MCV MCH MCHC RDW Plt Count MPV Sodium Potassium Chloride Carbon Dioxide Anion Gap BUN Creatinine Estimated GFR (MDRD) Glucose POC Capillary Glucose 280 H Calculated Osmolality Calcium Corrected Calcium Total Bilirubin AST ALT Alkaline Phosphatase Total Protein Albumin - Assessment (1) Acute bronchitis Acute J20.9 - ACUTE BRONCHITIS, UNSPECIFIED Comment/Plan: Treating for SOB and cough. Treat empirically as noted above. (2) COPD exacerbation Acute J44.1 - CHRONIC OBSTRUCTIVE PULMONARY DISEASE W (ACUTE) EXACERBATION Comment/Plan: Getting Rocephin Zithromax probiotic nebulizers and Solu-Medrol. (3) DM2 (diabetes mellitus, type 2) Chronic E11.9 - TYPE 2 DIABETES MELLITUS WITHOUT COMPLICATIONS Qualifiers: Diabetes mellitus complication status: D Diabetes mellitus complication detail: D Diabetic retinopathy severity: D Proliferative retinopathy type: P Diabetes mellitus macular edema: D Diabetes mellitus mcfp insulin use : D Laterality: L Chronic kidney disease stage: C Comment/Plan: Cont home metformin, diabetic diet, SSI qAC and HS. (4) Hypertension Acute I10 - ESSENTIAL (PRIMARY) HYPERTENSION Qualifiers: Hypertension type: essential hypertension Qualified Code(s): I10 - Essential (primary) hypertension Comment/Plan: Continue home antihypertensives. Case Care Discussed with: Patient, Nursing Staff Education/Counseling Given To: Patient Education/Counseling Given Regarding: Diagnosis Total Time: 39 min Critical Care: No Code: 79297 (12+)
[2016-03-16] MEDS: ENOXAPARIN 60 MG/0.6 ML PFS SQ SCH (16:42)
[2016-03-16] MEDS: CEFTRIAXONE 1 GM in D5W 100 ML IV SCH (16:45)
[2016-03-16] MEDS ORDERED: Medication Special Instructions SCH (18:00)
[2016-03-16] MEDS: PROBIOTIC BLEND TAB PO SCH (18:08)
[2016-03-16] MEDS: AZITHROMYCIN 250 MG TAB PO SCH (20:37)
[2016-03-17] MEDS: Albuterol/Ipratropium Neb 3 ML NEB NEB SCH ×4 (02:26→20:26)
[2016-03-17] MEDS ORDERED: NS 500 ML IV ONE (03:28)
[2016-03-17] MEDS: METHYLPREDNISOLONE 40 MG/1 ML VIAL IV SCH ×2 (05:23→17:23)
[2016-03-17] MEDS: REGULAR INSULIN 100 UNITS/ML - 3 ML VIAL SQ SCH ×4 (06:11→20:21)
[2016-03-17] MEDS: MetFORMIN, EXT REL 500 MG TAB PO SCH ×2 (06:29→11:43)
[2016-03-17 07:18] LABS: MPV 7.9 fL (7.4-10.4)
[2016-03-17] MEDS: AMLODIPINE 10 MG TAB PO SCH (07:47)
[2016-03-17] MEDS: FINASTERIDE 5 MG TAB PO SCH (07:47)
[2016-03-17] MEDS: BENAZEPRIL 20 MG TAB PO SCH (07:47)
[2016-03-17] MEDS: PROBIOTIC BLEND TAB PO SCH ×2 (07:47→17:23)
[2016-03-17] MEDS: ACETYLCYSTEINE 20% SOLN 4 ML NEB SCH ×2 (08:27→20:26)
[2016-03-17] MEDS: BUDESONIDE 0.5 MG NEB NEB SCH ×2 (08:27→20:26)
--- NOTE | 2016-03-17 10:02 | GENMEDPROG ---
Chief Complaint: coughing sob Notes Reviewed: Yes Events from last night noted and discussed with Clinical Staff Current Medication List: Reviewed Currently: Reports: Cough, Wheezing, MICHAELS, SOB, Sputum DVT Prophylaxis: Yes - Physical Examination Vital Signs and I&O: Last Vital Signs Temp 98.4 F 03/17/16 06:00 Pulse 90 03/17/16 07:46 Resp 18 03/17/16 06:00 BP 136/78 03/17/16 07:46 Pulse Ox 94 03/17/16 08:00 Oxygen Pulse Oxygen Saturation 94 O2 Device Nasal Cannula Oxygen Flow Rate 4 Fraction of Inspired Oxygen ( 40 FIO2) Intake & Output 03/14/16 03/15/16 03/16/16 03/17/16 23:59 23:59 23:59 23:59 Intake Total 1796 350 643 327 Output Total 5935 347 6726 825 Balance 425 -349 -8433 -137 Patient's weight 106.322 kg 106.169 kg 106.311 kg General: Alert, Oriented x3, Cooperative, Mild distress HEENT: Normal (Normocephalic, atraumatic;EOMI.Sclera white, Nares patent, without discharge or bleeding. No oropharyngeal lesions or erythema. Mucous membranes are dry.) Neck: Normal Trachea alignment, Normal inspection Lymphatics: Normal (No lymph node swelling or pain.) Respiratory: Diminished, Rales, Rhonchi, Wheezes (bilat) Cardiovascular: Regular rate and rhythm, Normal S1, No Gallops,Rubs/Murmurs, Normal S2 GI: Normal bowel sounds, Soft, Non tender (non distended) Extremities/Musculoskeletal: Other (Normal Tone). negative: Edema, Clubbing, Cyanosis Skin: No rashes, No breakdown, No significant lesion Neurological: Strength at 5/5 X4 ext (Motor 5/5 throughout.), Normal tone, Cranial nerves 3-12 NL ( 2-12 grossly intact.) Psych/Mental Status: Appropriate, Normal Affect Lab/DI/Studies Reviewed: 03/17/16 06:50 03/16/16 07:05 Laboratory Results - last 24 hr 03/16/16 03/16/16 03/17/16 11:17 16:07 06:50 WBC 6.7 RBC 3.94 L Hgb 11.8 L Hct 35.2 L MCV 89 MCH 30.0 MCHC 33.6 RDW 14.6 H Plt Count 146 MPV 7.9 POC Capillary Glucose 199 H 280 H - Assessment (1) Acute bronchitis Acute J20.9 - ACUTE BRONCHITIS, UNSPECIFIED Comment/Plan: Treating for SOB and cough. Treat empirically as noted above. (2) COPD exacerbation Acute J44.1 - CHRONIC OBSTRUCTIVE PULMONARY DISEASE W (ACUTE) EXACERBATION Comment/Plan: Getting Rocephin Zithromax probiotic nebulizers and Solu-Medrol. (3) DM2 (diabetes mellitus, type 2) Chronic E11.9 - TYPE 2 DIABETES MELLITUS WITHOUT COMPLICATIONS Qualifiers: Diabetes mellitus complication status: D Diabetes mellitus complication detail: D Diabetic retinopathy severity: D Proliferative retinopathy type: P Diabetes mellitus macular edema: D Diabetes mellitus nursing home insulin use : D Laterality: L Chronic kidney disease stage: C Comment/Plan: Cont home metformin, diabetic diet, SSI qAC and HS. (4) Hypertension Acute I10 - ESSENTIAL (PRIMARY) HYPERTENSION Qualifiers: Hypertension type: essential hypertension Qualified Code(s): I10 - Essential (primary) hypertension Comment/Plan: Continue home antihypertensives. Case Care Discussed with: Patient, Nursing Staff, Resource Management Education/Counseling Given To: Patient, Family Member Education/Counseling Given Regarding: Diagnosis, Treatment Total Time: 39 min Critical Care: No Code: 37972 (12+)
[2016-03-17] MEDS: ENOXAPARIN 60 MG/0.6 ML PFS SQ SCH (17:23)
[2016-03-17] MEDS: CEFTRIAXONE 1 GM in D5W 100 ML IV SCH (17:23)
[2016-03-18] MEDS: Albuterol/Ipratropium Neb 3 ML NEB NEB SCH ×4 (02:15→21:07)
[2016-03-18] MEDS: METHYLPREDNISOLONE 40 MG/1 ML VIAL IV SCH (05:29)
[2016-03-18] MEDS: REGULAR INSULIN 100 UNITS/ML - 3 ML VIAL SQ SCH ×4 (05:30→21:22)
[2016-03-18] MEDS: MetFORMIN, EXT REL 500 MG TAB PO SCH (05:30)
[2016-03-18 06:16] LABS: MPV 8.4 fL (7.4-10.4)
[2016-03-18] MEDS: ACETYLCYSTEINE 20% SOLN 4 ML NEB SCH ×2 (07:44→21:07)
[2016-03-18] MEDS: BUDESONIDE 0.5 MG NEB NEB SCH ×2 (07:45→21:08)
[2016-03-18] MEDS: FINASTERIDE 5 MG TAB PO SCH (08:18)
[2016-03-18] MEDS: BENAZEPRIL 20 MG TAB PO SCH (08:18)
[2016-03-18] MEDS: AMLODIPINE 10 MG TAB PO SCH (08:18)
[2016-03-18] MEDS: PROBIOTIC BLEND TAB PO SCH ×2 (08:18→17:23)
--- NOTE | 2016-03-18 09:10 | DIRPT ---
CLINICAL DATA: Cough and difficulty breathing for several weeks EXAM: CHEST 2 VIEW COMPARISON: 03/12/2016 FINDINGS: Cardiac shadow is stable. Mild aortic calcifications are again seen. Mild hyperinflation is again noted. Stable scarring is noted bilaterally. No acute infiltrate or sizable effusion is seen. No acute bony abnormality is noted. IMPRESSION: Chronic changes without acute abnormality. Electronically Signed By: Vic Cervantes M.D. On: 03/18/2016 09:08
--- NOTE | 2016-03-18 13:54 | GENMEDPROG ---
Chief Complaint: more sob today wheezing Notes Reviewed: Yes Events from last night noted and discussed with Clinical Staff Current Medication List: Reviewed Currently: Reports: Cough, Wheezing, MICHAELS, SOB, Sputum DVT Prophylaxis: Yes - Physical Examination Vital Signs and I&O: Last Vital Signs Temp 98.1 F 03/18/16 05:30 Pulse 78 03/18/16 05:30 Resp 20 03/18/16 05:30 BP 135/81 03/18/16 05:30 Pulse Ox 93 03/18/16 07:45 Oxygen Pulse Oxygen Saturation 93 O2 Device Nasal Cannula Oxygen Flow Rate 4 Fraction of Inspired Oxygen ( 40 FIO2) Intake & Output 03/15/16 03/16/16 03/17/16 03/18/16 23:59 23:59 23:59 23:59 Intake Total 350 643 946 390 Output Total 825 2020 1900 425 Balance -475 -1907 -954 -35 Patient's weight 106.169 kg 106.311 kg 107.246 kg General: Alert, Oriented x3, Cooperative, Mild distress HEENT: Normal (Normocephalic, atraumatic;EOMI.Sclera white, Nares patent, without discharge or bleeding. No oropharyngeal lesions or erythema. Mucous membranes are dry.) Neck: Normal Trachea alignment, Normal inspection Lymphatics: Normal (No lymph node swelling or pain.) Respiratory: Diminished, Rales, Rhonchi, Wheezes (bilat) Cardiovascular: Regular rate and rhythm, Normal S1, No Gallops,Rubs/Murmurs, Normal S2 GI: Normal bowel sounds, Soft, Non tender (non distended) Extremities/Musculoskeletal: Other (Normal Tone). negative: Edema, Clubbing, Cyanosis Skin: No rashes, No breakdown, No significant lesion Neurological: Strength at 5/5 X4 ext (Motor 5/5 throughout.), Normal tone, Cranial nerves 3-12 NL ( 2-12 grossly intact.) Psych/Mental Status: Appropriate, Normal Affect Lab/DI/Studies Reviewed: 03/18/16 04:50 03/16/16 07:05 Laboratory Results - last 24 hr 03/17/16 03/17/16 03/18/16 16:08 20:02 04:50 WBC 6.3 RBC 3.83 L Hgb 11.4 L Hct 34.2 L MCV 89 MCH 29.7 MCHC 33.2 RDW 14.6 H Plt Count 142 MPV 8.4 POC Capillary Glucose 155 H 225 H 03/18/16 03/18/16 05:09 11:45 WBC RBC Hgb Hct MCV MCH MCHC RDW Plt Count MPV POC Capillary Glucose 202 H 226 H - Assessment (1) Acute bronchitis Acute J20.9 - ACUTE BRONCHITIS, UNSPECIFIED Comment/Plan: Treating for SOB and cough. Treat empirically as noted above. Start singulair and switch solumed to po prednisone. (2) COPD exacerbation Acute J44.1 - CHRONIC OBSTRUCTIVE PULMONARY DISEASE W (ACUTE) EXACERBATION Comment/Plan: Getting Rocephin Zithromax probiotic nebulizers and Solu-Medrol. (3) DM2 (diabetes mellitus, type 2) Chronic E11.9 - TYPE 2 DIABETES MELLITUS WITHOUT COMPLICATIONS Qualifiers: Diabetes mellitus complication status: D Diabetes mellitus complication detail: D Diabetic retinopathy severity: D Proliferative retinopathy type: P Diabetes mellitus macular edema: D Diabetes mellitus terminal gauger insulin use : D Laterality: L Chronic kidney disease stage: C Comment/Plan: Cont home metformin, diabetic diet, SSI qAC and HS. (4) Hypertension Acute I10 - ESSENTIAL (PRIMARY) HYPERTENSION Qualifiers: Hypertension type: essential hypertension Qualified Code(s): I10 - Essential (primary) hypertension Comment/Plan: Continue home antihypertensives. Disposition Plan: home in am Case Care Discussed with: Patient, Nursing Staff, Resource Management Education/Counseling Given To: Patient, Family Member Education/Counseling Given Regarding: Diagnosis Total Time: 39 min Critical Care: No Code: 84516 (12+)
[2016-03-18] MEDS: ENOXAPARIN 60 MG/0.6 ML PFS SQ SCH (17:22)
[2016-03-18] MEDS: CEFTRIAXONE 1 GM in D5W 100 ML IV SCH (17:22)
[2016-03-18] MEDS: PREDNISONE 20 MG TAB PO SCH (17:23)
[2016-03-18] MEDS ORDERED: MONTELUKAST SODIUM 10 MG TAB PO SCH (21:00)
[2016-03-19] MEDS: Albuterol/Ipratropium Neb 3 ML NEB NEB SCH ×2 (02:20→09:00)
[2016-03-19 05:02] LABS: ALLEN'S TEST PASS; BEb 8.6 (+/- 2); TCO2 34.9 MMOL/L (23-27)
[2016-03-19 05:23] LABS: ABG Draw Site Left Radial
[2016-03-19 05:59] VITALS: BP 136/71; PULSE 86; TEMP 97.8
[2016-03-19] MEDS: MetFORMIN, EXT REL 500 MG TAB PO SCH (06:00)
[2016-03-19] MEDS: REGULAR INSULIN 100 UNITS/ML - 3 ML VIAL SQ SCH ×2 (06:00→11:38)
[2016-03-19 07:21] LABS: MPV 7.9 fL (7.4-10.4)
[2016-03-19] MEDS: BENAZEPRIL 20 MG TAB PO SCH (08:05)
[2016-03-19] MEDS: PREDNISONE 20 MG TAB PO SCH (08:05)
[2016-03-19] MEDS: FINASTERIDE 5 MG TAB PO SCH (08:05)
[2016-03-19] MEDS: AMLODIPINE 10 MG TAB PO SCH (08:05)
[2016-03-19] MEDS: BUDESONIDE 0.5 MG NEB NEB SCH (09:00)
[2016-03-19] MEDS: ACETYLCYSTEINE 20% SOLN 4 ML NEB SCH (09:01)
--- NOTE | 2016-03-19 11:22 | PCM.DCS92 ---
- Final/Secondary Discharge Diagnosis (1) Acute bronchitis Acute J20.9 - ACUTE BRONCHITIS, UNSPECIFIED Present on Admission: Yes Comment: Treating for SOB and cough. Treat empirically as noted above. Start singulair and switch solumed to po prednisone. (2) COPD exacerbation Acute J44.1 - CHRONIC OBSTRUCTIVE PULMONARY DISEASE W (ACUTE) EXACERBATION Present on Admission: Yes Comment: Getting Rocephin Zithromax probiotic nebulizers and Solu-Medrol. (3) DM2 (diabetes mellitus, type 2) Chronic E11.9 - TYPE 2 DIABETES MELLITUS WITHOUT COMPLICATIONS Present on Admission: Yes D D D P D D L C Comment: Cont home metformin, diabetic diet, SSI qAC and HS. (4) Hypertension Acute I10 - ESSENTIAL (PRIMARY) HYPERTENSION Present on Admission: Yes essential hypertension I10 - Essential (primary) hypertension Comment: Continue home antihypertensives. Discharge Disposition: Discharge w/ Home Health Discharge Condition: Improved Cognitive Discharge Status: Unimpaired Fuctional Discharge Status: Walker Assistance Physician Follow up/Referrals: Shin Nelson MD [Primary Care Provider] - 03/27/16 3:00 pm Mike Camejo MD [Staff Physician] - 03/26/16 3:30 pm Home Medications / New Prescriptions: New Cefdinir [Omnicef] 300 mg PO BID #10 cap Finasteride [Proscar] 5 mg PO DAILY #30 tablet Montelukast Sodium [Singulair] 10 mg PO HS #30 tablet Prednisone [Deltasone, Orasone] 20 mg PO BIDWM #20 tablet Probiotic Blend [Rima Q] 1 tab PO BIDLS #20 tablet Continue Benazepril HCl [Lotensin] 20 mg PO DAILY Amlodipine [Norvasc] 10 mg PO DAILY Nebulizer [Erapid Nebulizer] 1 item NEB DAILY Tiotropium [place] [Spiriva] 1 puff INH DAILY Fluticasone/Vilanterol [Breo Ellipta 200-25 Mcg INH] 1 puff INH DAILY Albuterol/Ipratropium Neb [Duoneb] 3 ml NEB Q6H PRN PRN Reason: Shortness Of Breath Acetaminophen Tablet [TYLENOL Tablet] 650 mg PO Q6H PRN #100 tablet PRN Reason: Mild Pain Or Fever Above 100.4 MetFORMIN, Extended Release [Glucophage Xr] 500 mg PO DAILY@0700 #30 tablet No Action Prednisone [Sterapred Ds] 10 mg PO DIR #48 pack Discharge Home Medication List Albuterol/Ipratropium Neb [Duoneb] 3 ml NEB Q6H PRN 02/23/16 [History Confirmed 03/12/16 Last Taken 03/12/16] Amlodipine [Norvasc] 10 mg PO DAILY 02/23/16 [History Confirmed 03/12/16 Last Taken 03/12/16] Benazepril HCl [Lotensin] 20 mg PO DAILY 02/23/16 [History Confirmed 03/12/16 Last Taken 03/12/16] Fluticasone/Vilanterol [Breo Ellipta 200-25 Mcg INH] 1 puff INH DAILY 02/23/16 [ History Confirmed 03/12/16 Last Taken 03/12/16] Nebulizer [Erapid Nebulizer] 1 item NEB DAILY 02/23/16 [History Confirmed Last Taken 03/12/16] Tiotropium [place] [Spiriva] 1 puff INH DAILY 02/23/16 [History Confirmed Last Taken 03/12/16] Acetaminophen Tablet [TYLENOL Tablet] 650 mg PO Q6H PRN #100 tablet 02/28/16 [ Rx Confirmed 03/12/16 Last Taken 03/12/16] MetFORMIN, Extended Release [Glucophage Xr] 500 mg PO DAILY@0700 #30 tablet 07/09 [Rx Confirmed 03/12/16 Last Taken 03/12/16] Cefdinir [Omnicef] 300 mg PO BID #10 cap 03/19/16 [Rx Last Taken Unknown] Finasteride [Proscar] 5 mg PO DAILY #30 tablet 03/19/16 [Rx Last Taken Unknown] Montelukast Sodium [Singulair] 10 mg PO HS #30 tablet 03/19/16 [Rx Last Taken Unknown] Prednisone [Deltasone, Orasone] 20 mg PO BIDWM #20 tablet 03/19/16 [Rx Last Taken Unknown] Probiotic Blend [Rima Q] 1 tab PO BIDLS #20 tablet 03/19/16 [Rx Last Taken Unknown] 03/19/16 06:36 03/16/16 07:05 Laboratory Results - last 24 hr 03/18/16 03/18/16 03/18/16 11:45 16:29 20:51 WBC RBC Hgb Hct MCV MCH MCHC RDW Plt Count MPV Puncture Site pH pCO2 pO2 HCO3 Total CO2 Base Excess FiO2 % Specimen Drawn By POC Capillary Glucose 226 H 255 H 228 H 03/19/16 03/19/16 03/19/16 04:48 05:32 06:36 WBC 6.2 RBC 3.93 L Hgb 11.7 L Hct 34.8 L MCV 89 MCH 29.9 MCHC 33.8 RDW 14.8 H Plt Count 142 MPV 7.9 Puncture Site Left radial pH 7.470 H pCO2 46.0 H pO2 71.0 L HCO3 33.5 H Total CO2 34.9 H Base Excess 8.6 H FiO2 % 4l nc Specimen Drawn By Whitr POC Capillary Glucose 210 H 03/19/16 11:16 WBC RBC Hgb Hct MCV MCH MCHC RDW Plt Count MPV Puncture Site pH pCO2 pO2 HCO3 Total CO2 Base Excess FiO2 % Specimen Drawn By POC Capillary Glucose 178 H O2 Device: Nasal Cannula Oxygen Flow Rate: 4 Diet at Discharge: As Tolerated Activity: As Tolerated Discontinue use of:: Alcohol, All Illegal Substances, All Types of Tobacco - DC Summary Notes HPI/Notes: This is a pleasant 75-year-old male who was just discharged from this hospital on February 27 with COPD exacerbation and bronchopneumonia, was being readmitted to the hospital today due to lower extremity edema, significant hypoxia and shortness of breath, as well as difficulty urinating. Patient tells me that when he went home his respiratory status was decent, in fact he has been quite well from a respiratory perspective and was doing well even yesterday. He was back on his baseline 2 liters/minute of nasal cannula chronic oxygen, and taking all his medications as prescribed including his nebulized COPD medications. He did notice however that he had some slight edema when he was discharged from the hospital on February 27, and this edema continued to worsen over the last several days. He denies any pain in his legs. His diet any fevers, chills, nausea or vomiting. He has a chronic cough which is perhaps slightly increased, he does not have any sputum production. No chest pain. Also no 7th last release not able urinate. He feels that he needs to urinate, that is bladder is full, but he is not able to urinate more than a few drops at a time. Hospital Course Note:: Discharge summary on patient named SHAAN TELLO admitted to [facility] on 03/12/16 by Brooks Castellanos MD. Date of discharge is 03/19/2016. His chest x-ray on admission showed interstitial changes and suggestion of bronchitis. He was started on Rocephin Zithromax Solu-Medrol and prior to discharge Singulair was added to his regimen. P.o. prednisone was substituted for Solu-Medrol when he went home. Reaching maximal medical improvement he was ready for discharge today. Follow up with primary care provider and Dr. Camejo within the next 2 weeks will be necessary. CC: Dr. Bashir Nelson Total Time: 40 min Code: 79066 (>30min.) - Physical Exam Vital Signs: Last Vital Signs Temp 97.8 F 03/19/16 05:59 Pulse 86 03/19/16 05:59 Resp 20 03/19/16 05:59 BP 136/71 03/19/16 05:59 Pulse Ox 93 03/19/16 08:00 Oxygen Pulse Oxygen Saturation 93 O2 Device Nasal Cannula Oxygen Flow Rate 4 Fraction of Inspired Oxygen ( 40 FIO2) Constitutional: Alert Oriented to: Time, Person, Place - HEENT Head: Normal Eye: Normal. negative: Conjunctival Injection, Scleral Icterus Oropharynx: Normal. negative: Drooling ENT EAC: Normal (No oropharyngeal lesions or erythema. Mucous membranes are dry. ) TMJ: Normal Nose: No Symptoms Reported - Respiratory/Cardiovascular Respiratory: Diminished, Rhonchi, Wheezes (bilat). negative: Rales Cardiovascular: Normal (RRR , Normal S1, S2. No murmurs, rubs, or gallops. PMI non-displaced. Carotids: no carotid bruits. No bradycardia or tachycardia. DP pulses 2+ bilaterally.) - GI Auscultation: Normal (normal active sounds) Palpation: Normal (Soft,non distended,nontender. No hepatosplenomegaly.) Tenderness: Non tender Lewis's Sign: Negative - Exam Deferred: Yes - Musculoskeletal Back: Normal Extremities: Pedal Edema (bilat 1+), Pedal Pulse, Radial Pulse - Integumentary Skin: Normal (Warm dry no rashes) Lymphatics: Normal (No lymph node swelling or pain.) - Neurologic Memory Impaired: Normal Motor Function: Normal (Motor 5/5 throughout.Normal tone, Pulses 2+ No cyanosis or edema, FROM) Cranial Nerve: Normal (CN II-XII intact sensation, strength 5/5) Cerebellar: Normal (Babinski: toes downgoing bilaterally. Intact Finger to nose. Sensory grossly intact to light touch. Intact rapid alternating movements bilaterally. No pronator drift.) Mood Description: Normal Thought: Coherent Perception: Normal
[2016-03-19] MEDS: PROBIOTIC BLEND TAB PO SCH (11:38)
== END 2016-03-19 14:25 | disposition home health service (06) | DRG 190 ==
LOC: ED 12:35 → PCU 16:20 → MPS3 03-13 15:55
PROVIDERS: ADMIT Internal Medicine; ATTEND Internal Medicine
PROC: 039C3ZZ Drainage of Left Radial Artery, Percutaneous Approach (ICD-10-PCS; principal; 2016-03-12)
DX: J44.0 Chronic obstructive pulmonary disease with (acute) lower respiratory infection (principal); J96.01 Acute respiratory failure with hypoxia; J20.9 Acute bronchitis, unspecified; J44.1 Chronic obstructive pulmonary disease with (acute) exacerbation; E11.9 Type 2 diabetes mellitus without complications; I10 Essential (primary) hypertension; Z99.81 Dependence on supplemental oxygen; K21.9 Gastro-esophageal reflux disease without esophagitis; M19.90 Unspecified osteoarthritis, unspecified site; Z79.899 Other long term (current) drug therapy; Z87.891 Personal history of nicotine dependence; R33.9 Retention of urine, unspecified
CPT/HCPCS: 36415; 36600; 51798; 71020; 80053; 81001; 82803; 82962; 83605; 83880; 84484; 85007; 85027; 85610; 85730; 87040; 93005; 94640; 96365; 96372; 96375; 97161; 98960; 99285; G0237; J0456; J0696; J1650; J2543; J2920; J2930; J3490; J7060; J7070; J7608; J7620